=== PATIENT | female | born 1935 | race Caucasian/White ===

== ENCOUNTER 2017-12-21 07:40 | Inpatient (IN) | payer MEDICARE, OTHER, SELFPAY ==
[2017-12-21] VITALS (10 sets, daily range): BP systolic 102–127; BP diastolic 45–94; PULSE 55–84; RESP 12–18; TEMP 36.5–37.2; O2SAT 93–97; BMI 33.7; BMI 33.6; BMI 33.8
--- NOTE | 2017-12-21 08:21 | CT_ITS ---
STUDY: CT RIGHT FEMUR WITHOUT CONTRAST REASON FOR EXAM: Female, 82 years old. Right hip pain and right buttock pain. RADIATION DOSAGE (If Supplied By Facility): CTDIvol = ( 10.30 ) mGy, DLP = ( 546.28 ) mGycm TECHNIQUE: Transaxial CT imaging of the femur was performed. Sagittal and coronal images were reconstructed. Individualized dose optimization techniques were used for this CT. COMPARISON: None. FINDINGS: There is diffuse soft tissue swelling in the subcutaneous tissue and within the right gluteus muscle extending into the lateral aspect of the proximal thigh. This most likely represents hematoma. There is also evidence of a multiple superficial venous varicosities in the anterior and medial aspects of both extremities Small ventral hernia. Sigmoid diverticulosis. Atherosclerotic plaque formation of the abdominal aorta and iliac vessels bilaterally. Normal visualized femur. Degenerative changes of the lumbar spine. CT/Extremity Lower without Contra IMPRESSION: Findings suggestive of a hematoma overlying the right gluteus muscle extending into the lateral aspect of the proximal right thigh. Venous varicosities. Electronically Signed: Emmanuel Bell MD at 9:22 EDT Tel [phone], Service support ,
[2017-12-21 08:39] LABS: Absolute Lymphocyte Count 1.65 X10^3/ul (0.83-4.51); Absolute Neutrophil Count 5.2 X10^3/uL (2.0-7.7); Basophil# 0.02 X10^3/uL; Basophil% 0.3 % (0-1); Hematocrit 37.3 % (37-47); Hemoglobin 11.9 g/dl (12.0-15.0); Lymphocyte # 1.65 X10^3/ul (4.0); Lymphocyte % 21.8 % (19-41); Mean Corp Hgb Conc 31.9 g/gl (32-36); Mean Corpuscular Hgb 29.2 pg (27.0-32.0); Mean Corpuscular Volume 91.6 fL (81-99); Monocyte# 0.36 X10^3/uL; Monocyte% 4.8 % (0-10); Neutrophil # 5.22 X10^3/uL (2.7-7.7); Neutrophil % 68.8 % (47-70); Platelet Count 140 K/mm3 (150-450); RBC Distribution Width CV 14.5 % (11.6-14.6); RBC Distribution Width SD 48.8 fl (35.1-43.9); Red Blood Count 4.07 M/mm3 (4.2-5.4); White Blood Count 7.6 K/mm3 (4.4-11.0)
[2017-12-21] MEDS: Ondansetron 4 MG/2 ML Vial IV (08:41)
[2017-12-21] MEDS: Morphine 4 MG/ML Syringe IV (08:41)
[2017-12-21 08:42] LABS: POSITIVE COUNT NO; POSITIVE DIFFERENTIAL NO; POSITIVE MORPHOLOGY NO
[2017-12-21 08:51] LABS: Prothrombin Time (Protime)PT. 36.8 SECONDS (11.7-14.9)
[2017-12-21 08:52] LABS: Anion Gap 7 (5-15); BUN 17 mg/dL (7-18); BUN/Creat Ratio 16.7 RATIO (10-20); Calcium,Total 8.9 mg/dL (8.5-10.1); Chloride 103 mmol/L (98-107); Creatinine, Serum 1.02 mg/dL (0.55-1.02); EST Glomerular Filtration Rate 55 mL/min (>60); Est Glom Filt Rate - Afr Amer 67 mL/min (>60); Estimated Creatinine Clearance 37.99 ml/min; Glucose 124 mg/dL (74-106); Sodium Level 139 mmol/L (136-145)
[2017-12-21 09:02] LABS: International Normalized Ratio 3.7
--- NOTE | 2017-12-21 10:19 | ED.VISSUMM ---
- ER Visit Summary Date of Service: 12/21/17 Chief Complaint: Right hip pain History of Present Illness: The patient is a 82 F who presents with right hip and buttock pain and swelling. He is on warfarin due to a history of DVT. She also has a history of back pain and sciatica. However last night she began to have pain over her right hip and buttock. She does not recall any fall or injury. This is worse with walking or bearing weight. Her INR was recently supratherapeutic and she has held her warfarin for the past day. She otherwise has no complaints. No fever chest pain shortness of breath nausea vomiting lightheadedness dizziness. Physical Examination: Afebrile vitals unremarkable Patient resting comfortably Heart regular rate and rhythm Lungs are clear Abdomen soft Patient's right hip and buttock are firm and tender do not appreciate overlying ecchymosis or erythema it is not hot to the touch she has good range of motion of the hip without significant pain normal sensation distally Test Results: Laboratory studies notable for hemoglobin 11.9, INR 3.7. Emergency Department Course and Treatment: Based on examination my concern was for spontaneous hematoma. A CT of the lower extremity does show findings consistent with a right gluteus and proximal thigh hematoma. At this time she is hemodynamically stable. Her hemoglobin is unremarkable. However I do feel hospitalization indicated for monitoring for expansion or anemia. She is on warfarin due to a history of recurrent DVTs but this has been remote and she says at least was 5 years ago. She does not have atrial fibrillation her artificial valve. Therefore I do feel reversal appropriate. She was given oral vitamin K. Patient was discussed with the hospitalist and will be admitted. They did request that I speak to surgery in case the patient would need surgical intervention. Plastic surgery is unavailable. I spoke to general surgery who deferred to orthopedics. Dr. Aldridge states that he would operate if needed unless there was any type of major vessel injury or needed vascular repair. Her hematoma is not expanding based on my clinical examination at this time. It does not appear to be under tense pressure. Dr. Aldridge stated he would see the patient as long as it was possible to get an urgent CT angiogram if needed which would be available. Patient admitted to the hospitalist service. Treatment Plan: [] Disposition: Admit Impression: Spontaneous right gluteus hematoma Supratherapeutic INR This note was generated with [employer] dictation software. It may contain incorrect words, spelling, and punctuation that were not noted in review of the chart prior to signing ED Disposition - Plan for ED Patient: Chief Complaint: Lower Extremity Injury Referrals: Angelo Willis III, MD [Primary Care Provider] -
--- NOTE | 2017-12-21 10:43 | CM.ED ---
CM INITIAL ASSESSMENT: Patient is in the ER during assessment. Her son, Antonio, is at bedside. Home: Patient lives in a two-story home with her son, Antonio. The patient has first-floor setup and denies any problems with stairs. HHS/Aides: Denies. When well, patient does drive. DME: Patient states she uses a cane when she's outside of the home. She does not use any assistive devices within the home and denies need. Home Oxygen: Denies. Pharmacy: [facility] in [place] Advance Directives: Has, verified on E-Chart. Son, Antonio, is her medical POA. PCP: Angelo Willis Specialists: Patient states she use to see Dr. Donnelly for back pain management, but after my heart attack they had me stop. She sees Dr. Frank for cardiology. Sven Willis for surgery. DC Plan: TBD. Patient would like to return home, with her son. CM to follow for possible home health needs. CM will continue to follow for safe and effective discharge planning.
[2017-12-21] MEDS: Phytonadione (Vit K) 10 MG/ML Ampul PO (11:16)
--- NOTE | 2017-12-21 12:40 | HP.PCM_ITS ---
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 Her right hip began hurting while [place] She denies fall, impact, or trauma. It started as an ache and progressively worsened all day. She took two tylenol with no relief. She went to bed and woke up this AM about 0130 with severe pain. She noticed swelling and tenderness to the touch. She had her INR checked yesterday and it was elevated at 4.8. She was advised not to take her warfarin last night, which she has not done and did not take any today. In the ER she was found to have a hematoma of the right glute and proximal thigh. INR was 3.[address] Aldridge was consulted. She was given 10 mg vitamin K. She takes warfarin as she has had multiple DVTs of her LE since the 1970s. She denies SOB, dizziness, LH, palpitations, and her Hgb is only mildly dec. at 11.9. [] Past Medical History Past Medical History (Chronic Problems): Chronic Problems Type II diabetes mellitus (Chronic) Coronary artery disease (Chronic) History of recurrent deep vein thrombosis (DVT) (Chronic) CHF (congestive heart failure) (Chronic) HLD (hyperlipidemia) (Chronic) HTN (hypertension) (Chronic) Obesity (Chronic) Pancreatic pseudocyst (Chronic) Allergies Penicillins Allergy (Verified 12/21/17 07:40) Swelling Sulfa (Sulfonamide Antibiotics) Allergy (Verified 12/21/17 07:40) Rash meperidine HCl [From Demerol] Adverse Reaction (Verified 12/21/17 07:40) Other Home Medications: Ambulatory Orders Medication Instructions Recorded Bimatoprost [Lumigan Opthalmic] 1 drop EACH EYE QHS 08/19/13 Clopidogrel Bisulfate [Plavix] 75 mg PO DAILY 08/19/13 Ibuprofen [Motrin] 800 mg PO BID 08/19/13 Insulin Glargine [Lantus SoloStar 46 units SC QHS 08/19/13 Pen] Insulin Lispro [Humalog] 20 unit SQ ACHS 08/19/13 Warfarin [Coumadin] 3 mg PO SUMOWEFRSA 08/19/13 Furosemide [Lasix] 20 mg PO BIDLX 12/21/17 Gabapentin [Neurontin] 100 mg PO TID 12/21/17 Levothyroxine Sodium 75 mcg PO DAILY@0600 12/21/17 Pantoprazole Sodium [Protonix] 40 mg PO DAILY 12/21/17 Rosuvastatin Calcium 20 mg PO DAILY 12/21/17 Sertraline HCl [Zoloft] 25 mg PO DAILY 12/21/17 Spironolactone [Aldactone] 25 mg PO DAILY 12/21/17 Warfarin [Coumadin ([facility])] 3.5 mg PO TUTH 12/21/17 Surgical History: cholecystectomy, - - pancreatic pseudocyst, ectopic , vein stripping Psychiatric History: No pertinent psych hx 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 Lives: With Family Smoking Status: Former smoker Tobacco Use: Secondhand Alcohol: None Drugs: None - *Family History Maternal History Items: Diabetes, Heart Disease Paternal History Items: Unknown Review of Systems Constitutional: Denies: Chills, Fever, Weight Change HEENT: Denies: Head Aches, Sinus Congestion, Sinus Drainage Cardiovascular: Denies: Chest Pain, Palpitations Respiratory: Denies: Cough, Shortness of breath at rest, Sputum production Gastrointestinal: Denies: Abdominal Pain, Nausea, Vomiting Genitourinary: Denies: Dysuria Musculoskeletal: Reports: Joint Pain, Joint stiffness, Joint swelling, Joint Tenderness, Leg Pain Skin: Denies: Rash, Wounds Neurological: Denies: Numbness, Tingling, Focal weakness Psychiatric: Denies: Anxiety, Depression, Homicidal Ideations, Suicidal Ideations Hematologic/ Lymphatic: Denies: Easy Bruising, Easy Bleeding VTE Information - Inpt Only VTE Present on Admission: No VTE Mechan Device Prophylaxis: SCD's VTE Pharm Prophylaxis ordered?: No Reason prophylaxis not ordered:: Medical Contraindication Patient Problems: Active and Suspected Problems Hematoma (Acute) - Physical Exam General: Alert, Oriented x3, Cooperative HEENT: Atraumatic, PERRLA, EOMI, Normocephalic Neck: Supple, No JVD, Negative Carotid Bruits Lungs: Clear to auscultation, Normal air movement Cardiovascular: Regular rate, No murmurs Abdomen: Bowel Sounds Present, Soft, Non Tender Extremities: No edema, Capillary Refill Less than 3 Seconds, - - severe varicosities of BL LE Skin: No rashes, No breakdown Musculoskeletal: No Tenderness to Palpation of Joints or Extremities, - - right glute/hip with some bruising, mild warmth, induration Neurological: Cranial nerves II-XII grossly intact Psych/Mental Status: Normal Affect, Appropriate Vital Signs Temp Pulse Resp BP Pulse Ox 98.4 F 65 16 104/81 H 97 12/21/17 07:41 12/21/17 10:45 12/21/17 10:45 12/21/17 10:45 12/21/17 10:45 Laboratory Tests Past 24 Hrs 12/21/17 12:15 Blood Type Pending Assessment/Plan Active and Suspected Problems Hematoma (Acute) 1. Acute large right gluteal atraumatic hematoma 2/2 supratherapeutic INR/ warfarin coagulopathy - s/p 10 mg Vit K and 1 unit FFP. Trend. Consult to Dr. Aldridge. No plans for surgical intervention at this time. Hgb mildly decreased. No fall/trauma. CT: Right LE :Findings suggestive of a hematoma overlying the right gluteus muscle extending into the lateral aspect of the proximal right thigh. 2. Hx DVTs - multiple since 1970s. Long time coumadin user. 3. Venous insufficiency - s/p vein stripping with severe varicosities. 4. CAD s/p stents and CABG - continue home meds. prior [place]. Continue statin/ plavix/diuretics. 5. COPD - former smoker and current secondhand smoke exposure. No SOB, lungs clear. 6. DMt2 with obesity - titrate insulin therapy 7. Hypothyroidism - continue synthroid 8. HTN - stable 9. Chronic diastolic CHF - continue lasix/aldactone. 10. Sciatica - continue neurontin. DVT ppx : SCDs, trend supratherapeutic INR DC planning: PTOT This patient was seen by Gaston Mortensen PA-C under the supervision of Dr. Chen.
[2017-12-21 13:10] LABS: Bedside Glucose 87 mg/dL (70-110)
[2017-12-21] MEDS: oxyCODONE 5 MG Tablet PO ×2 (13:14→20:02)
[2017-12-21] MEDS: 0.9% Normal Saline 1,000 ML 75 ML IV (13:15)
[2017-12-21] MEDS: 0.9% NaCl Peripheral Flush Adult/Peds IV (13:17)
[2017-12-21] MEDS: Gabapentin 100 MG Capsule PO ×2 (13:22→21:38)
[2017-12-21] MEDS: Insulin Lispro 100 UNIT/ML INSULN.PEN 20 UNIT SC (13:25)
[2017-12-21] MEDS: Acetaminophen 325 MG Tablet 650 MG PO (16:17)
--- NOTE | 2017-12-21 16:49 | NURSING ---
Pt has had one 4 oz of orange juice, 4 oz of cranberry juice, 1 pkg of mariah doones with peanut butter on each cracker, and finished a can of 222 ml reg coke.
--- NOTE | 2017-12-21 16:55 | NURSING ---
Blood glucose is 64, pt's tray arrived and she is not eating supper.
--- NOTE | 2017-12-21 16:59 | NURSING ---
Pt is alert and oriented x3, eating supper now.
--- NOTE | 2017-12-21 18:42 | PCM.CONS.GEN ---
Reason for Consult Date of Consultation: 12/21/17 Reason for Consultation: Right thigh hematoma. requested by dr jones History of Present Illness: The patient is a 82 year old F who is on Coumadin for DVTs presented to the emergency department this morning. Patient noted swelling after walking in the cemetery last afternoon which progressed throughout the evening. She states this morning it remained stable but began to hurt more. She has no redness. She noted ecchymosis. She had difficulty with walking due to the pain. She had an INR of 4.8 in the emergency department. Medicine is admitted her and started reversing her INR. She reports some relief of her pain at this time. She states it is not grown significantly today at all. She denies any numbness and tingling distally. No other associated pain. No fevers chills or night sweats. Past Medical History Past Medical History (Chronic Problems): Chronic Problems Type II diabetes mellitus (Chronic) Coronary artery disease (Chronic) History of recurrent deep vein thrombosis (DVT) (Chronic) CHF (congestive heart failure) (Chronic) HLD (hyperlipidemia) (Chronic) HTN (hypertension) (Chronic) Obesity (Chronic) Pancreatic pseudocyst (Chronic) Allergies Penicillins Allergy (Verified 12/21/17 07:40) Swelling Sulfa (Sulfonamide Antibiotics) Allergy (Verified 12/21/17 07:40) Rash meperidine HCl [From Demerol] Adverse Reaction (Verified 12/21/17 07:40) Other Home Medications: Ambulatory Orders Medication Instructions Recorded Bimatoprost [Lumigan Opthalmic] 1 drop EACH EYE QHS 08/19/13 Clopidogrel Bisulfate [Plavix] 75 mg PO DAILY 08/19/13 Ibuprofen [Motrin] 800 mg PO BID 08/19/13 Insulin Glargine [Lantus SoloStar 46 units SC QHS 08/19/13 Pen] Insulin Lispro [Humalog] 20 unit SQ ACHS 08/19/13 Warfarin [Coumadin] 3 mg PO SUMOWEFRSA 08/19/13 Furosemide [Lasix] 20 mg PO BIDLX 12/21/17 Gabapentin [Neurontin] 100 mg PO TID 12/21/17 Levothyroxine Sodium 75 mcg PO DAILY@0600 12/21/17 Pantoprazole Sodium [Protonix] 40 mg PO DAILY 12/21/17 Rosuvastatin Calcium 20 mg PO DAILY 12/21/17 Sertraline HCl [Zoloft] 25 mg PO DAILY 12/21/17 Spironolactone [Aldactone] 25 mg PO DAILY 12/21/17 Warfarin [Coumadin ([facility])] 3.5 mg PO TUTH 12/21/17 Surgical History: cholecystectomy, - - pancreatic pseudocyst, ectopic , vein stripping Psychiatric History: No pertinent psych hx 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 Lives: With Family Smoking Status: Former smoker Tobacco Use: Secondhand Alcohol: None Drugs: None - *Family History Maternal History Items: Diabetes, Heart Disease Paternal History Items: Unknown Review of Systems Constitutional: Denies: Chills, Fever, Weight Change HEENT: Denies: Head Aches, Sinus Congestion, Sinus Drainage Cardiovascular: Denies: Chest Pain, Palpitations Respiratory: Denies: Cough, Shortness of breath at rest, Sputum production Gastrointestinal: Denies: Abdominal Pain, Nausea, Vomiting Genitourinary: Denies: Dysuria Musculoskeletal: Reports: - - HPI Skin: Reports: - - Right thigh ecchymosis. Denies: Rash, Wounds Neurological: Denies: Numbness, Tingling, Focal weakness Psychiatric: Denies: Anxiety, Depression, Homicidal Ideations, Suicidal Ideations Hematologic/ Lymphatic: Denies: Easy Bruising, Easy Bleeding Patient Problems: Active and Suspected Problems Hematoma (Acute) Objective: CT scan of the right thigh was reviewed showing large superficial hematoma - Physical Exam General: Alert, Oriented x3, Cooperative Extremities: - - Lower extremity: There is a large area of firmness over the lateral thigh and buttocks. There is associated ecchymosis. No erythema. Sensations intact light touch SP/DP/tibial/sural/saphenous nerve distribution on the right. Motor is intact dorsiflexion EHL and plantar flexion on the right. Vital Signs Temp Pulse Resp BP Pulse Ox 98.8 F 66 16 105/63 95 12/21/17 16:00 12/21/17 16:00 12/21/17 16:00 12/21/17 16:00 12/21/17 16:00 Oxygen Delivery Method Room Air Weight: 197 lb 0.011 oz Body Mass Index (BMI) 33.6 Intake and Output for Last 24 Hours 05/21/18 05/22/18 05/23/18 23:59 23:59 23:59 Intake Total 0 / 0 Balance 0 / 0 Laboratory Tests Past 24 Hrs 12/21/17 12:15 Blood Type O POSITIVE POC Glucose 12/21/17 13:05 POC Glucose 87 Assessment/Plan Active and Suspected Problems Hematoma (Acute) Spontaneous right thigh hematoma. At this time patient does not show signs of infectious etiology. I recommend reversing the INR watching clinical examination. Patient does have progressive increase in size of the hematoma causing tension on the skin or signs of infected hematoma is contact orthopedics again. At this time I would recommend patient follow-up with her primary care doctor for management of her Coumadin so these do not recur in the future. No surgical intervention is needed at this time. [facility] Office:
[2017-12-21] MEDS: Furosemide 20 MG Tablet PO (18:50)
[2017-12-21 18:51] LABS: Bedside Glucose 199 mg/dL (70-110)
[2017-12-21] MEDS: Atorvastatin Calcium 40 MG Tablet PO (21:38)
[2017-12-21] MEDS: Insulin Lispro 100 UNIT/ML INSULN.PEN 10 UNIT SC (21:38)
[2017-12-21] MEDS: Insulin Lispro 100 UNIT/ML INSULN.PEN SC (21:39)
[2017-12-21] MEDS: Latanoprost 0.005% 1 Bottle 1 DRP EACH EYE (21:40)
[2017-12-21 21:41] LABS: Bedside Glucose 272 mg/dL (70-110)
[2017-12-22 04:38] VITALS: BP 101/50; PULSE 66; RESP 18; TEMP 37.4; O2SAT 95
[2017-12-22 04:41] LABS: Bedside Glucose 146 mg/dL (70-110)
[2017-12-22] MEDS: Gabapentin 100 MG Capsule PO (05:58)
[2017-12-22] MEDS: 0.9% Normal Saline 1,000 ML 75 ML IV (05:58)
[2017-12-22] MEDS: Levothyroxine 75 MCG Tablet PO (05:58)
[2017-12-22 06:09] LABS: Absolute Lymphocyte Count 1.75 X10^3/ul (0.83-4.51); Absolute Neutrophil Count 5.3 X10^3/uL (2.0-7.7); Basophil# 0.02 X10^3/uL; Basophil% 0.3 % (0-1); Eosinophil# 0.26 X10^3/uL; Eosinophils% 3.4 % (0-5); Hematocrit 34.1 % (37-47); Hemoglobin 10.8 g/dl (12.0-15.0); Lymphocyte # 1.75 X10^3/ul (4.0); Lymphocyte % 22.6 % (19-41); Mean Corp Hgb Conc 31.7 g/gl (32-36); Mean Corpuscular Hgb 29.8 pg (27.0-32.0); Mean Corpuscular Volume 93.9 fL (81-99); Mean Platelet Vol. 11.3 fl (6.2-12.0); Monocyte# 0.44 X10^3/uL; Monocyte% 5.7 % (0-10); Neutrophil # 5.27 X10^3/uL (2.7-7.7); Neutrophil % 67.7 % (47-70); Platelet Count 132 K/mm3 (150-450); RBC Distribution Width CV 14.7 % (11.6-14.6); Red Blood Count 3.63 M/mm3 (4.2-5.4); White Blood Count 7.8 K/mm3 (4.4-11.0)
[2017-12-22 06:13] LABS: POSITIVE COUNT NO; POSITIVE DIFFERENTIAL NO; POSITIVE MORPHOLOGY NO
[2017-12-22 06:17] LABS: International Normalized Ratio 1.5; Prothrombin Time (Protime)PT. 17.9 SECONDS (11.7-14.9)
[2017-12-22 07:41] LABS: Bedside Glucose 225 mg/dL (70-110)
[2017-12-22 07:43] VITALS: BP 104/57; PULSE 60; RESP 16; TEMP 37.3; O2SAT 92
[2017-12-22] MEDS: Insulin Lispro 100 UNIT/ML INSULN.PEN SC (08:12)
[2017-12-22] MEDS: Insulin Lispro 100 UNIT/ML INSULN.PEN 10 UNIT SC (08:13)
[2017-12-22 08:28] VITALS: RESP 18
[2017-12-22] MEDS: Furosemide 20 MG Tablet PO (09:11)
[2017-12-22] MEDS: Spironolactone 25 MG Tablet PO (09:11)
[2017-12-22] MEDS: Pantoprazole Sodium 40 MG Tablet PO (09:11)
[2017-12-22] MEDS: Sertraline 50 MG Tablet 25 MG PO (09:11)
[2017-12-22] MEDS: Clopidogrel Bisulfate 75 MG Tablet PO (09:13)
--- NOTE | 2017-12-22 09:41 | DCINST_ITS ---
- Discharge Diagnoses Current Active Problems: Current Active and Chronic Problems Hematoma (Acute) You will use the following diet at home:: Calorie/Carbohydrate Controlled ( specify 1200, 1400, etc), Cardiac Discharge Activity: No Restrictions Call your doctor if you observe: Numbness or Tingling, Uncontrolled pain, - - Increased swelling, pain, redness right thigh. Additional Instructions: You will hold your coumadin regimen until further evaluated by primary care physician in one week. Allergies/Adverse Reactions: Allergies Penicillins Allergy (Verified 12/21/17 07:40) Swelling Sulfa (Sulfonamide Antibiotics) Allergy (Verified 12/21/17 07:40) Rash meperidine HCl [From Demerol] Adverse Reaction (Verified 12/21/17 07:40) Other Medications to take at Discharge Bimatoprost [Lumigan Opthalmic] 1 drop EACH EYE QHS 08/19/13 Clopidogrel Bisulfate [Plavix] 75 mg PO DAILY 08/19/13 Ibuprofen [Motrin] 800 mg PO BID 08/19/13 Insulin Glargine [Lantus SoloStar Pen] 46 units SC QHS 08/19/13 Insulin Lispro [Humalog] 20 unit SQ ACHS 08/19/13 Furosemide [Lasix] 20 mg PO BIDLX 12/21/17 Gabapentin [Neurontin] 100 mg PO TID 12/21/17 Levothyroxine Sodium 75 mcg PO DAILY@0600 12/21/17 Pantoprazole Sodium [Protonix] 40 mg PO DAILY 12/21/17 Rosuvastatin Calcium 20 mg PO DAILY 12/21/17 Sertraline HCl [Zoloft] 25 mg PO DAILY 12/21/17 Spironolactone [Aldactone] 25 mg PO DAILY 12/21/17 Primary Care Physician: Angelo Willis III, MD [Primary Care Provider] - Please follow up with your Primary Care Physician in: 1 Week Proposed Discharge Date: 12/22/17
--- NOTE | 2017-12-22 09:42 | PCM.DC.SUM ---
Discharge Date and Diagnosis Date of Admission: 12/21/17 Date of Discharge: 12/22/17 - Primary Discharge Diagnosis Active and Suspected Problems 1. Acute large right gluteal/right thigh atraumatic hematoma secondary to supratherapeutic INR 2. History of DVTs 3. Hypertension 4. Hyperlipidemia 5. Type 2 diabetes mellitus 6. Chronic diastolic CHF 7. Hypothyroidism 8. CAD status post stents and CABG 9. Venous insufficiency status post vein stripping with severe varicosities 10. Sciatica - Secondary Discharge Diagnosis Chronic Problems Type II diabetes mellitus (Chronic) Coronary artery disease (Chronic) History of recurrent deep vein thrombosis (DVT) (Chronic) CHF (congestive heart failure) (Chronic) HLD (hyperlipidemia) (Chronic) HTN (hypertension) (Chronic) Obesity (Chronic) Pancreatic pseudocyst (Chronic) Hospital Course and Treatment Imaging Results: Diagnostic Data Lower Extremity CT 12/21/17 08:21 IMPRESSION: Findings suggestive of a hematoma overlying the right gluteus muscle extending into the lateral aspect of the proximal right thigh. Venous varicosities. Electronically Signed: Emmanuel Bell MD at 9:22 EDT Tel [phone], Service support , Dr. Aldridge- Orthopedic surgery Operations: None Procedures: None Summary of Care Provided: The patient is a 82 year old F admitted 12/21/2017 due to right hip pain. She has a past medical history of recurrent DVTs on chronic Coumadin, type 2 diabetes mellitus, chronic diastolic CHF, CAD status post CABG and stents, hypertension, hyperlipidemia, sciatica, hypothyroidism, COPD, venous insufficiency status post vein stripping with severe varicosities. Patient denies trauma or fall. CT of right lower extremity showed hematoma of the right gluteus muscle extending into the lateral aspect of the proximal right thigh. Dr. Aldridge, orthopedic surgery consulted during admission. Hematoma remained stable and did not require any surgical intervention. Patient received 10 mg of vitamin K and 1 unit FFP due to INR 3.7 on admission. Hemoglobin remained stable. Patient denies further pain. INR 1.5 at discharge. She will remain off of Coumadin until further assessment by primary care physician in 1 week. Other chronic medical conditions as noted above are stable at this time. General: Alert, Oriented x3, Cooperative HEENT: Atraumatic, PERRLA, EOMI, Normocephalic Neck: Supple, No JVD, Negative Carotid Bruits Lungs: Clear to auscultation, Normal air movement Cardiovascular: Regular rate, No murmurs Abdomen: Bowel Sounds Present, Soft, Non Tender Extremities: No edema, Capillary Refill Less than 3 Seconds, severe varicosities bilateral lower extremities. Skin: No rashes, No breakdown Musculoskeletal: No Tenderness to Palpation of Joints or Extremities, right gluteal/right hip with mild ecchymosis and tenderness. Neurological: Cranial nerves II-XII grossly intact Psych/Mental Status: Normal Affect, Appropriate Patient seen and examined prior to discharge. Physical assessment as noted above. Patient stable for discharge home with further follow-up with primary care physician in 1 week. This patient was seen by SKIP Rm under the supervision of Dr. Chen. Discharge Diet: Low fat/ Low Cholesterol, Carb Control Diet Discharge Activity: No Restrictions Call your doctor if you observe: Numbness or Tingling, Uncontrolled pain, - - Increased swelling, pain, redness right thigh. Home Medications: Medications to take at Discharge Bimatoprost [Lumigan Opthalmic] 1 drop EACH EYE QHS 08/19/13 Clopidogrel Bisulfate [Plavix] 75 mg PO DAILY 08/19/13 Ibuprofen [Motrin] 800 mg PO BID 08/19/13 Insulin Glargine [Lantus SoloStar Pen] 46 units SC QHS 08/19/13 Insulin Lispro [Humalog] 20 unit SQ ACHS 08/19/13 Furosemide [Lasix] 20 mg PO BIDLX 12/21/17 Gabapentin [Neurontin] 100 mg PO TID 12/21/17 Levothyroxine Sodium 75 mcg PO DAILY@0600 12/21/17 Pantoprazole Sodium [Protonix] 40 mg PO DAILY 12/21/17 Rosuvastatin Calcium 20 mg PO DAILY 12/21/17 Sertraline HCl [Zoloft] 25 mg PO DAILY 12/21/17 Spironolactone [Aldactone] 25 mg PO DAILY 12/21/17 Primary Care Physician: Angelo Willis III, MD [Primary Care Provider] - Please follow up with your Primary Care Physician in: 1 Week Disposition: Home Minutes spent on discharge:: 35 Patient Condition:: Stable Medical Necessity - Tobacco Use Smoking Status: Former smoker Tobacco Use: Secondhand Meaningful Use Info Meaningful Use Diagnoses (Choose all that apply): None applicable
--- NOTE | 2017-12-22 10:35 | CASEMGMT ---
Pt to be dc'd today. Lives with her son. Per nursing, she is ambulatory with minimal assistance and cane from home. No new needs identified. Virgie BALDWINN RN ACM
[2017-12-22 10:38] VITALS: BP 122/63; PULSE 60; RESP 18; TEMP 37.2; O2SAT 98
[2017-12-22 15:21] LABS: Bedside Glucose 58 mg/dL (70-110)
[2017-12-22 15:21] LABS: Bedside Glucose 61 mg/dL (70-110)
[2017-12-22 15:21] LABS: Bedside Glucose 64 mg/dL (70-110)
[2017-12-22 15:21] LABS: Bedside Glucose 60 mg/dL (70-110)
--- NOTE | 2017-12-30 13:59 | CASEMGMT ---
RN REBEL DC Phone Call. Intro role of CM to patient via phone. discussed progress at home, questions re: instructions, prescriptions, f/u. Pt states she has followed up with her physician and is doing well. No questions. Stated her care was excellent and no suggestions. Virgie BALDWINN RN ACM
== END 2017-12-22 11:00 | disposition home or self-care (01) | DRG 813 ==
LOC: ED 08:31 → MS2 10:57
PROVIDERS: Admitting Provider Internal Medicine; Emergency Provider Emergency Medicine; Family Provider Family Medicine; PCP Family Medicine; Visit Provider Internal Medicine
DX: R23.3 Spontaneous ecchymoses (principal); K86.3 Pseudocyst of pancreas; I50.32 Chronic diastolic (congestive) heart failure; T45.515A Adverse effect of anticoagulants, initial encounter; I11.0 Hypertensive heart disease with heart failure; E78.5 Hyperlipidemia, unspecified; E11.9 Type 2 diabetes mellitus without complications; I25.10 Atherosclerotic heart disease of native coronary artery without angina pectoris; E66.9 Obesity, unspecified; Z79.01 Long term (current) use of anticoagulants; Z86.718 Personal history of other venous thrombosis and embolism; Z68.33 Body mass index [BMI] 33.0-33.9, adult; Z71.3 Dietary counseling and surveillance; Z87.891 Personal history of nicotine dependence; E03.9 Hypothyroidism, unspecified; Z95.1 Presence of aortocoronary bypass graft
CPT/HCPCS: 36415; 73700; 80048; 82962; 85025; 85610; 86900; 99284; J7030; J7040; P9017; A4216; J2405

== ENCOUNTER → 2019-01-23 | Outpatient (CLI) | payer MEDICARE, OTHER, SELFPAY ==
[2019-01-23 13:33] LABS: International Normalized Ratio 3.3; Prothrombin Time (Protime)PT. 33.9 SECONDS (11.7-14.9)
== END | disposition home or self-care (01) ==
PROVIDERS: Family Provider Family Medicine; PCP Family Medicine; Referring Provider Family Medicine; Visit Provider Family Medicine
DX: I25.10 Atherosclerotic heart disease of native coronary artery without angina pectoris (principal); D69.6 Thrombocytopenia, unspecified
CPT/HCPCS: 85610

== ENCOUNTER → 2019-10-22 12:30 | Outpatient (CLI) | payer MEDICARE, OTHER, SELFPAY ==
[2019-09-06 14:44] VITALS: BMI 34.0
--- NOTE | 2019-10-22 12:32 | ECHOD_ITS ---
Reason For Study: MURMUR Procedure This was a 2D Doppler, Color Flow transthoracic echocardiogram. The study was technically difficult. Exam performed in department. Left Ventricle Normal LV size. Sigmoid septum. Segmental dysfunction with preserved ejection fraction (see wall motion). The estimated ejection fraction is 60 %. Mid-inferoseptal : Hypokinetic. Mid-anteroseptal : Hypokinetic. Septal [place] : Hypokinetic. Right Ventricle Normal RV size. Normal systolic function. Atria The left atrium is mildly enlarged. Normal right atrium. No doppler evidence for ASD. Mitral Valve There is mild mitral annular calcification. Extension of the mitral annular calcification onto the base of the posterior mitral valve leaflet. Trivial mitral valve insufficiency. Tricuspid Valve Normal tricuspid valve. Trivial tricuspid valve insufficiency. Right ventricular systolic pressure estimated to be 23 mmHg. Aortic Valve Trisinus/trileaflet aortic valve. Mild focal aortic valve thickening. Mild focal aortic valve calcification. Mild aortic stenosis. Pulmonic Valve The pulmonic valve is not well visualized. Great Vessels Normal sized aortic root. Calcified aortic root. Pericardium/Pleural No pericardial effusion. MMode/2D Measurements & Calculations LVIDd: 4.3 cm IVSd: 0.94 cm LVOT diam: 2.1 cm LVIDs: 3.0 cm LVPWd: 0.98 cm LVOT area: 3.3 cm2 RVDd: 2.9 cm FS: 30.4 % Ao root diam: 2.9 cm LAV(MOD-bp): 67.5 ml LA A4 area: 21.1 cm2 LAV(MOD-bp) Indexed: 34.1 ml/m2 LAV(MOD-sp2): 76.6 ml LAV(MOD-sp4): 59.3 ml LA dimension(2D): 4.8 cm RA A4 area: 15.0 cm2 Time Measurements MV dec time: 0.16 sec Doppler Measurements & Calculations MV E max craig: 80.5 cm/sec Lat Peak E' Craig: 5.9 cm/sec Med Peak E' Craig: 5.3 cm/sec MV A max craig: 58.5 cm/sec E/E' lat: 13.8 E/E' med: 15.1 MV E/A: 1.4 Ao V2 max: 182.6 cm/sec LV V1 max: 79.8 cm/sec SV(LVOT): 67.5 ml Ao max P.3 mmHg LV V1 max P.5 mmHg Ao V2 mean: 139.0 cm/sec LV V1 mean P.5 mmHg Ao mean P.1 mmHg LV V1 mean: 59.6 cm/sec Ao V2 VTI: 45.7 cm LV V1 VTI: 20.3 cm TANIA(I,D): 1.5 cm2 TANIA(V,D): 1.5 cm2 PA V2 max: 84.9 cm/sec TR max craig: 222.9 cm/sec TR max P.9 mmHg Interpretation Summary The study was technically difficult. Segmental dysfunction with preserved ejection fraction (see wall motion). The estimated ejection fraction is 60 %. Sigmoid septum. The left atrium is mildly enlarged. There is mild mitral annular calcification. Extension of the mitral annular calcification onto the base of the posterior mitral valve leaflet. Trivial mitral valve insufficiency. Trivial tricuspid valve insufficiency. Mild aortic stenosis. Calcified aortic root. Right ventricular systolic pressure estimated to be 23 mmHg. Transmitral diastolic flow velocities suggest diastolic dysfunction (pseudonormal pattern). Ordering Physician: Sim Benson Referring Physician: Angelo Willis Performed By: Yanci Richardson, VAMSHI, RVT
== END ==
PROVIDERS: PCP Family Medicine; Referring Provider Internal Medicine Cardiovascular Disease; Visit Provider Internal Medicine Cardiovascular Disease
DX: I25.10 Atherosclerotic heart disease of native coronary artery without angina pectoris (principal)
CPT/HCPCS: 93306

== ENCOUNTER 2021-04-29 13:40 | Emergency (ER) | payer MEDICARE, OTHER, SELFPAY ==
[2021-04-29 13:41] VITALS: BP 137/69; PULSE 70; RESP 17; TEMP 36.5; O2SAT 95; BMI 35.2
[2021-04-29 14:40] VITALS: BP 137/69; PULSE 70; RESP 17; TEMP 36.5; O2SAT 95
--- NOTE | 2021-04-29 15:07 | CT_ITS ---
We are attempting to reach an attending provider to discuss findings. An addendum with communication details will be sent when the communication is complete. HISTORY: headache, vertigo TECHNIQUE: Multiple axial images were obtained of the brain without intravenous contrast. A radiation dose optimization technique was used for this scan. IV Contrast dosage and agent: None. COMPARISON: None FINDINGS: # of images incl. paperwork: [phone] PARANASAL SINUSES AND MASTOID AIR CELLS: Clear. INTRACRANIAL HEMORRHAGE: Mixed attenuation but predominantly acute subdural hematoma over the left frontal lobe, maximal thickness 13 mm with mass effect on the underlying parenchyma. Small right frontal subdural hematoma, 4 mm maximal thickness. Small left-sided layering tentorial subdural hematoma, maximal thickness 4 mm. Anterior interhemispheric acute subdural hematoma, 2 mm thickness.. No midline shift. BRAIN PARENCHYMA: No CT evidence of stroke. No intracranial masses. There is preservation of the manuel/white matter interface. Posterior fossa structures are unremarkable. CSF SPACES: Appropriate for age. There is no hydrocephalus. CALVARIUM: Intact. CT/Brain/Head without Contrast IMPRESSION: Bilateral acute subdural hematomas, largest on the left up to 13 mm, no midline shift. Small left-sided layering tentorial and interhemispheric subdural hematoma. Individualized dose optimization techniques were used for this CT. at 1559 Reported and signed by: Jomar Potter MD Electronically Signed: Jomar Potter MD at 15:57 EDT Tel , Service support ,
[2021-04-29] MEDS: Metoclopramide 10 MG/2 ML Vial 5 MG IV (15:21)
[2021-04-29 15:33] LABS: Absolute Lymphocyte Count 1.54 X10^3/uL (0.83-4.51); Absolute Neutrophil Count 5.4 X10^3/uL (2.0-7.7); Basophil# 0.05 X10^3/uL; Basophil% 0.7 % (0-1); Eosinophil# 0.15 X10^3/uL; Hematocrit 39.2 % (37-47); Hemoglobin 12.6 g/dL (12.0-15.0); Lymphocyte # 1.54 X10^3/ul (0.83-4.51); Lymphocyte % 20.1 % (19-41); Mean Corp Hgb Conc 32.1 g/dL (32-36); Mean Corpuscular Volume 96.3 fL (81-99); Mean Platelet Vol. 10.8 fl (6.2-12.0); Monocyte# 0.48 X10^3/uL; Monocyte% 6.3 % (0-10); NRBC Flagged by Analyzer 0 % (0-5); Neutrophil % 70.4 % (47-70); Platelet Count 160 K/mm3 (150-450); RBC Distribution Width CV 14.7 % (11.6-14.6); RBC Distribution Width SD 52.5 fl (35.1-43.9); Red Blood Count 4.07 M/mm3 (4.2-5.4); White Blood Count 7.7 K/mm3 (4.4-11.0)
[2021-04-29 15:44] LABS: Prothrombin Time (Protime)PT. 30.3 SECONDS (11.7-14.9)
[2021-04-29 15:47] VITALS: BP 143/65; PULSE 85; RESP 20; TEMP 36.8
[2021-04-29 15:56] LABS: Anion Gap 8 (5-15); BUN 21 mg/dL (7-18); BUN/Creat Ratio 18.9 RATIO (10-20); Calcium,Total 9.5 mg/dL (8.5-10.1); Chloride 101 mmol/L (98-107); Creatinine, Serum 1.11 mg/dL (0.55-1.02); EST Glomerular Filtration Rate 50 mL/min (>60); Est Glom Filt Rate - Afr Amer 60 mL/min (>60); Estimated Creatinine Clearance 31.21 ml/min; Glucose 107 mg/dL (74-106); Potassium 4.5 mmol/L (3.5-5.1); Sodium Level 138 mmol/L (136-145)
--- NOTE | 2021-04-29 16:07 | EX.ED.GENINJ ---
HPI History of Present Illness Chief Complaint: Nausea/Vomiting Informant: patient Narrative Narrative: Patient presents private vehicle for evaluation of nontraumatic headache with dizzy sensation since yesterday. Symptoms worse with head turning. States nausea and vomiting with the dizzy sensations. Reports she had left ear symptoms since the beginning of this month, she saw an urgent care she was treated for shingles of the ear on Valtrex. She was referred to ophthalmology who evaluate her eyes and there was no shingles there. She follow-up with PCP office states it was not shingles and had concerning ear infection was changed over to Ceftinir. She finished this antibiotic. She did follow-up with ENT referred by PCP, reports something removed from her left inner ear by suction which improved her symptoms. However yesterday symptoms are new. She is on warfarin for history of DVTs. Last dose was yesterday in the evening. She ambulates with a cane at home. She does have history of bypass surgery, she is on Plavix also. Prior similar symptoms: No PFSH PFSH Medical History Atherosclerotic heart disease of [place] coronary artery without angina pectoris CHF (congestive heart failure) Chronic diastolic heart failure CKD (chronic kidney disease) stage 3, GFR 30-59 ml/min Community acquired pneumonia COPD (chronic obstructive pulmonary disease) Coronary artery disease Diffuse cystic mastopathy Essential hypertension First degree AV block Glaucoma Hematoma History of non-ST elevation myocardial infarction (NSTEMI) History of recurrent deep vein thrombosis (DVT) HLD (hyperlipidemia) SALAMATOF (hard of hearing) HTN (hypertension) Hypothyroidism Left ventricular hypertrophy Obesity Old myocardial infarction Pancreatic pseudocyst Pes planus [place] Statin intolerance Thrombocytopenia Type II diabetes mellitus Venous insufficiency Home Medications bimatoprost 1 drp EACH EYE QHS 08/19/13 [History Last Taken 03/29/16] clopidogrel 75 mg PO DAILY 08/19/13 [History Last Taken 03/29/16] insulin lispro 20 unit SQ ACHS 08/19/13 [History Last Taken 03/29/16] furosemide 20 mg PO BIDLX 12/21/17 [History Last Taken Unknown] levothyroxine 75 mcg PO DAILY@0600 12/21/17 [History Last Taken Unknown] spironolactone 25 mg PO DAILY 12/21/17 [History Last Taken Unknown] warfarin 1 mg tablet 1 mg PO DAILY 06/25/19 [History Last Taken Unknown] warfarin 3 mg tablet 3 mg PO DAILY 06/25/19 [History Last Taken Unknown] insulin glargine 100 unit/mL (3 mL) subcutaneous pen 44 unit SUBCUT QHS ml 09/06/19 [History Last Taken Unknown] mometasone 0.1 % topical cream 1 applic TOPICAL DAILY PRN 09/06/19 [History Last Taken Unknown] rosuvastatin 10 mg tablet See Rx Instructions .ROUTE .COMPLEX #90 tablet 10/23/20 [Rx Last Taken Unknown] gabapentin 100 mg capsule 100 mg PO TID 12/17/20 [History Last Taken Unknown] Allergy/AdvReac Type Severity Reaction Status Date / Time celecoxib [From Celebrex] Allergy Severe Itching Verified 04/29/21 13:46 Penicillins Allergy Swelling Verified 04/29/21 13:46 Sulfa (Sulfonamide Allergy Rash Verified 04/29/21 13:46 Antibiotics) atorvastatin AdvReac Severe myalgias Verified 04/29/21 13:46 meperidine HCl [From Demerol] AdvReac Other Verified 04/29/21 13:46 Family History Mother Diabetes Surgical History History of coronary artery bypass surgery (~04/06/16) Social History Smoking Status: Former smoker alcohol intake: never substance use type: does not use caffeine: No ROS ROS ED Constitutional Constitutional ED: Denies chills, fever(s) or sweats Eyes Eyes: Denies change in vision ENT ENT ED: Denies dysphagia or sore throat Cardiovascular Cardiovascular: Denies chest pain, leg edema, palpitations or racing heartbeat Respiratory/Chest Respiratory/Chest: Denies cough, dyspnea or dyspnea on exertion Gastrointestinal Gastrointestinal: Reports nausea and vomiting; Denies abdominal pain or diarrhea Genitourinary Genitourinary ED: Denies dysuria, hematuria or urinary frequency Musculoskeletal Musculoskeletal: Denies back pain, extremity pain or neck pain Integumentary Denies rash or wounds Neurologic Neurologic: Reports headache(s); Denies paresthesias or weakness EXAM Physical Exam Const Vital Signs: 04/29/21 13:41 04/29/21 14:40 04/29/21 15:47 Temperature 97.7 F L 97.7 F L 98.2 F Temperature Source Temporal Temporal Oral Pulse Rate 70 70 85 Respiratory Rate 17 17 20 H Blood Pressure 137/69 H 137/69 H 143/65 H Blood Pressure Mean 91 91 91 Pulse Ox 95 95 Oxygen Delivery Method Room Air Room Air Room Air Oxygen Flow Rate (L/min) 04/29/21 16:02 04/29/21 16:16 04/29/21 16:20 Temperature 98.2 F Temperature Source Pulse Rate 82 86 Respiratory Rate 17 18 Blood Pressure 150/75 H 150/75 H Blood Pressure Mean 100 100 Pulse Ox 100 100 Oxygen Delivery Method Nasal Cannula Nasal Cannula Oxygen Flow Rate (L/min) 2 2 Positive well nourished and well developed General Appearance ED: well developed and NAD HEENT Reports moist mucous membranes HEENT Narrative: Bilateral hearing aids. normocephalic and atraumatic Eyes PERRL, EOMs intact bilaterally and conjunctivae normal General Eye ED: Yes normal appearance of both eyes and other Other Details: No nystagmus. Neck no lymphadenopathy and supple General: Negative for tenderness Chest Wall Chest: Negative for tenderness Resp normal respiratory effort and normal air movement Effort and Inspection: symmetric chest movement; Negative for respiratory distress Cardio regular rate, regular rhythm and no murmurs Peripheral Pulses: pulses 2+ throughout GI normal to inspection, nondistended, normoactive bowel sounds and non-tender Palpation: Negative for guarding or rebound tenderness present Back/Spine no CVA tenderness and no thoracic nor lumbar tenderness Extremity normal to inspection General Extremety ED: Negative for edema or tenderness General Extremity: Negative for edema Neuro oriented x3, CN's II-XII intact bilaterally and no sensory deficits noted Sensorium / Orientation: awake and alert Skin no rashes or lesions noted and no wounds MDM MDM MDM Narrative Medical decision making narrative: Patient with no focal deficits new onset headache with vertigo symptoms. I did check labs, CT head ordered. Was given IV Reglan 5 mg due to vertigo symptoms. Reported to me by truck technician there is concerns for bleed therefore this was reviewed, noted large left subdural on the left side. Acute there was concern for small chronic subdural on the right side. There is no shifting. She is ordered for vitamin K due to being on warfarin. I Discussed with patient she is a full code and would want surgical intervention if needed. Labs return INR at 3.0 hemoglobin 12.6. Creatinine 1.11. Blood pressure vital stable she is alert and oriented x3. Patient is sure she did not hit her head recently. I discussed with [facility] transfer line with [facility] team, she is auto excepted to [facility] ED under the service of Dr. Lopez. Patient and family updated. Oxygen started due to ICH. 1610: CT scan per radiology read noteds acute bilateral subdural hematoma, left up to 13mm, no midline shift. Lab Data Attestation: I reviewed the patient's lab results. Labs: Laboratory Results - last 24 hr 04/29/21 04/29/21 04/29/21 15:20 15:20 15:20 WBC 7.7 RBC 4.07 L Hgb 12.6 Hct 39.2 MCV 96.3 MCH 31.0 MCHC 32.1 RDW Std Deviation 52.5 H RDW Coeff of Se 14.7 H Plt Count 160 MPV 10.8 Immature Gran % (Auto) 0.500 Neut % (Auto) 70.4 H Lymph % (Auto) 20.1 [place] % (Auto) 6.3 Eos % (Auto) 2.0 Baso % (Auto) 0.7 Absolute Neuts (auto) 5.4 Absolute Lymphs (auto) 1.54 Nucleated RBC % 0 PT 30.3 H INR 3.0 APTT Sodium 138 Potassium 4.5 Chloride 101 Carbon Dioxide 29.0 Anion Gap 8 BUN 21 H Creatinine 1.11 H Estim Creat Clear Calc 31.21 Est GFR (MDRD) Af Amer 60 Est GFR (MDRD) Non-Af 50 L BUN/Creatinine Ratio 18.9 Glucose 107 H Calcium 9.5 04/29/21 15:20 WBC RBC Hgb Hct MCV MCH MCHC RDW Std Deviation RDW Coeff of Se Plt Count MPV Immature Gran % (Auto) Neut % (Auto) Lymph % (Auto) [place] % (Auto) Eos % (Auto) Baso % (Auto) Absolute Neuts (auto) Absolute Lymphs (auto) Nucleated RBC % PT INR APTT 44.5 H Sodium Potassium Chloride Carbon Dioxide Anion Gap BUN Creatinine Estim Creat Clear Calc Est GFR (MDRD) Af Amer Est GFR (MDRD) Non-Af BUN/Creatinine Ratio Glucose Calcium Radiography Diagnostic Testing: Radiology Impression Brain CT 04/29/21 15:07 IMPRESSION: Bilateral acute subdural hematomas, largest on the left up to 13 mm, no midline shift. Small left-sided layering tentorial and interhemispheric subdural hematoma. Individualized dose optimization techniques were used for this CT. at 1559 Reported and signed by: Jomar Potter MD Electronically Signed: Jomar Potter MD at 15:57 EDT Tel , Service support , ADDENDUM: 04/29/21 1654 IMPRESSION: Bilateral acute subdural hematomas, largest on the left up to 13 mm, no midline shift. Small left-sided layering tentorial and interhemispheric subdural hematoma. Individualized dose optimization techniques were used for this CT. at 1559 Reported and signed by: Jomar Potter MD N.B. : Dr. Guerrero Wheeler MD, confirmed on 04/29/2021 16:47:42 (ET) that the referring physician received the results and does not require a verbal communication. Electronically Signed: Jomar Potter MD at 15:57 EDT Tel , Service support , Critical Care Time Critical Care Time: Yes Critical care time (excluding procedures): 30-74 minutes, Discussing w/Patient &/or Family/Curriculum Writer, Discussing w/Consultants, Arranging Admission or Transfer, Performing Direct Patient Care at Bedside and - (45 minutes) Discharge Plan Triage Chief Complaint: Nausea/Vomiting ED Provider: Guerrero Wheeler Dx/Rx/DC Orders Clinical Impression: Acute subdural hematoma, Vertigo, Headache Prescriptions: No Action warfarin [Coumadin] 3 mg tablet 3 mg PO DAILY RF: 0 warfarin [Coumadin] 1 mg tablet 1 mg PO DAILY RF: 0 mometasone 0.1 % cream 1 applic TOPICAL DAILY PRN (Reason: Itching) RF: 0 clopidogrel 75 MG tablet 75 mg PO DAILY RF: 0 insulin lispro 100 UNIT/ML solution 20 unit SQ ACHS RF: 0 bimatoprost 1 DROP bottle 1 drp EACH EYE QHS RF: 0 insulin glargine 100 unit/mL (3 mL) insulin pen 44 unit subcut QHS RF: 0 spironolactone 25 MG tablet 25 mg PO DAILY RF: 0 furosemide 20 MG tablet 20 mg PO BIDLX RF: 0 levothyroxine 75 MCG tablet 75 mcg PO DAILY@0600 RF: 0 gabapentin 100 mg capsule 100 mg PO TID RF: 0 rosuvastatin 10 mg tablet See Rx Instructions .ROUTE .COMPLEX Qty: 90 RF: 4 Primary Care Provider: Ke Zabala Referrals: Ke Zabala MD [Primary Care Provider] - Disposition Disposition: Transfer to Another Type [facility]CF Discharge Date/Time: 04/29/21 16:50
[2021-04-29 16:16] VITALS: BP 150/75; PULSE 82; RESP 17; TEMP 36.8; O2SAT 100
[2021-04-29 16:20] VITALS: BP 150/75; PULSE 86; RESP 18; O2SAT 100
--- NOTE | 2021-04-29 16:38 | ED.RN ---
[facility].
[2021-04-29 16:40] LABS: Partial Thromboplast Time 44.5 Seconds (24.1-36.2)
--- NOTE | 2021-04-29 16:45 | ED.RN ---
REPORT TO [facility].
--- NOTE | 2021-04-29 16:50 | ED.RN ---
PT OUT OF ED WITH [facility] FOR TRANSPORT TO [facility]. PT SKIN P/W/D, RESP EVEN AND UNLABORED, PT A&O X 3, NO DISTRESS NOTED.
== END 2021-04-29 16:50 | disposition other institution (70) ==
PROVIDERS: Emergency Provider Emergency Medicine; PCP Family Medicine
DX: I62.01 Nontraumatic acute subdural hemorrhage (principal); E03.9 Hypothyroidism, unspecified; E11.22 Type 2 diabetes mellitus with diabetic chronic kidney disease; E66.9 Obesity, unspecified; Z68.35 Body mass index [BMI] 35.0-35.9, adult; E78.5 Hyperlipidemia, unspecified; H40.9 Unspecified glaucoma; I13.0 Hypertensive heart and chronic kidney disease with heart failure and stage 1 through stage 4 chronic kidney disease, or unspecified chronic kidney disease; N18.30 Chronic kidney disease, stage 3 unspecified; I50.32 Chronic diastolic (congestive) heart failure; I25.10 Atherosclerotic heart disease of native coronary artery without angina pectoris; I25.2 Old myocardial infarction; I87.2 Venous insufficiency (chronic) (peripheral); J44.9 Chronic obstructive pulmonary disease, unspecified; Z87.01 Personal history of pneumonia (recurrent); Z86.718 Personal history of other venous thrombosis and embolism; Z79.4 Long term (current) use of insulin; Z79.01 Long term (current) use of anticoagulants; Z79.02 Long term (current) use of antithrombotics/antiplatelets; Z79.899 Other long term (current) drug therapy; Z87.891 Personal history of nicotine dependence
CPT/HCPCS: 70450; 80048; 85025; 85610; 85730; 96365; 96374; 99285; J7040; J7050; A4216; J3490

== ENCOUNTER 2021-05-05 17:43 | Emergency (ER) | payer MEDICARE, OTHER, SELFPAY ==
[2021-05-05 17:45] VITALS: BP 103/51; PULSE 78; RESP 18; TEMP 36.8; O2SAT 97; BMI 34.0
--- NOTE | 2021-05-05 18:11 | ED.VIS.LOWEX ---
HPI History of Present Illness Chief Complaint: Lower Extremity Injury Detail of Chief Complaint: Right foot pain that started yesterday Informant: patient Narrative Narrative: Patient presents to the emergency department complaint of right foot pain that started yesterday. Patient today noted that it was more red and swollen and she cannot put weight on it. She denies any injury. Patient states she was recently admitted to [facility] and flown from our facility to their facility for spontaneous intracranial hemorrhage. Patient states that she was taken off all her anticoagulation including Coumadin and Plavix. Patient does not have history of gout or pseudogout. Patient presents via EMS as she was unable to bear weight. [facility] Medical History Atherosclerotic heart disease of [place] coronary artery without angina pectoris CHF (congestive heart failure) Chronic diastolic heart failure CKD (chronic kidney disease) stage 3, GFR 30-59 ml/min Community acquired pneumonia COPD (chronic obstructive pulmonary disease) Coronary artery disease Diffuse cystic mastopathy Essential hypertension First degree AV block Glaucoma Hematoma History of non-ST elevation myocardial infarction (NSTEMI) History of recurrent deep vein thrombosis (DVT) HLD (hyperlipidemia) [place] (hard of hearing) HTN (hypertension) Hypothyroidism Left ventricular hypertrophy Obesity Old myocardial infarction Pancreatic pseudocyst Pes planus Sciatica Statin intolerance Thrombocytopenia Type II diabetes mellitus Venous insufficiency Home Medications bimatoprost 1 drp EACH EYE QHS 08/19/13 [History Last Taken 03/29/16] insulin lispro 20 unit SQ ACHS 08/19/13 [History Last Taken 03/29/16] furosemide 20 mg PO BIDLX 12/21/17 [History Last Taken Unknown] levothyroxine 75 mcg PO DAILY@0600 12/21/17 [History Last Taken Unknown] insulin glargine 100 unit/mL (3 mL) subcutaneous pen 44 unit SUBCUT QHS ml 09/06/19 [History Last Taken Unknown] gabapentin 100 mg capsule 100 mg PO TID 12/17/20 [History Last Taken Unknown] hydrocodone-acetaminophen 1 tab PO Q4H PRN PRN 2 Days #10 tablet 05/05/21 [Rx Last Taken Unknown] levetiracetam 750 mg PO BID 05/05/21 [History Last Taken Unknown] lisinopril 5 mg PO DAILY 05/05/21 [History Last Taken Unknown] multivitamin 1 tab PO DAILY 05/05/21 [History Last Taken Unknown] prednisone 20 mg PO BID #10 tab 05/05/21 [Rx Last Taken Unknown] Allergy/AdvReac Type Severity Reaction Status Date / Time celecoxib [From Celebrex] Allergy Severe Itching Verified 04/29/21 13:46 Penicillins Allergy Swelling Verified 04/29/21 13:46 Sulfa (Sulfonamide Allergy Rash Verified 04/29/21 13:46 Antibiotics) atorvastatin AdvReac Severe myalgias Verified 04/29/21 13:46 meperidine HCl [From Demerol] AdvReac Other Verified 04/29/21 13:46 Family History Mother Diabetes Surgical History History of coronary artery bypass surgery (~04/06/16) Social History Smoking Status: Former smoker alcohol intake: never substance use type: does not use caffeine: No ROS ROS ED Constitutional Constitutional ED: Reports systems reviewed and no addt'l complaints, except as documented; Denies body ache(s), change in weight or chills Eyes Eyes: Denies acute decrease in peripheral vision, change in vision, double vision or loss of vision ENT ENT ED: Reports none; Denies ear pain, lip swelling, loss taste/smell, neck pain, otalgia or sore throat Cardiovascular Cardiovascular: Reports none; Denies abdominal pain, chest pain with activity, leg edema, lightheadedness, palpitations, rapid heart rate or syncope Respiratory/Chest Respiratory/Chest: Reports none; Denies change in mental status, dry cough, dyspnea, hemoptysis, shortness of breath at rest or shortness of breath with exertion Gastrointestinal Gastrointestinal: Reports none; Denies abdominal pain, change in stool character, diarrhea, hematemesis, hematochezia, melena, rectal bleeding or vomiting Genitourinary Genitourinary ED: Reports none; Denies abdominal discomfort, anuria, dysuria, genital pain or polyuria Musculoskeletal Musculoskeletal: Reports none and other Details: Right foot pain ; Denies arthralgias, back pain, difficulty walking, extremity pain, muscle weakness or myalgias Integumentary Reports none; Denies abscess or rash Neurologic Neurologic: Reports none; Denies abnormal gait, confusion, focal weakness, frequent falls, headache(s), loss of vision, numbness, paresthesias, radicular pain, vertigo or weakness Psychiatric Psychiatric: Reports systems reviewed and no addt'l complaints, except as documented and none; Denies behavioral changes, confusion, difficulty concentrating, hallucinations, suicidal ideation, tactile hallucinations or visual hallucinations Endocrine Endocrinology: Denies none, cold intolerance, excessive sweating, fatigue or heat intolerance Hematologic/Lymphatic Hematologic/Lymphatic: Reports none; Denies anemia, easy bleeding or easy bruising Allergic/Immunologic Allergic/Immunologic ED: Denies as per HPI, none, lip swelling, mouth swelling, throat swelling, tongue swelling or hives EXAM Physical Exam Const Vital Signs: 05/05/21 17:45 Temperature 98.3 F Temperature Source Oral Pulse Rate 78 Respiratory Rate 18 Blood Pressure 103/51 L Blood Pressure Mean 68 Pulse Ox 97 Oxygen Delivery Method Room Air Positive well nourished and well developed General Appearance ED: well developed and NAD HEENT Reports TM's clear and moist mucous membranes normocephalic and atraumatic; Negative for trauma or tenderness Tympanic Membrane ED: Yes TM's clear Eyes PERRL and EOMs intact bilaterally General Eye ED: Negative for pale conjunctiva or scleral icterus Neck no lymphadenopathy, supple and no JVD General: Negative for tenderness Chest Wall inspection of chest normal and palpation of chest normal Chest: Negative for tenderness Resp normal respiratory effort and clear to auscultation bilaterally Effort and Inspection: Negative for respiratory distress or pain with movement Auscultation: Negative for rhonchi, wheezes or diminished lung sounds Cardio regular rate, regular rhythm, S1 normal heart sound, S2 normal heart sound and no murmurs Peripheral Pulses: pulses 2+ throughout GI normal to inspection, nondistended, normoactive bowel sounds, soft to palpation, non-tender, non-distended and no masses Back/Spine no CVA tenderness and no thoracic nor lumbar tenderness Extremity Extremity Narrative: Evaluation of the right foot reveals some faint erythema over the first MTP joint with tenderness to palpation. Patient also with some faint erythema over the medial aspect of the ankle joint with tenderness to palpation. Patient has normal dorsal pedal and posterior tibial pulses. Exam consistent with gout. General Extremety ED: Negative for edema General Extremity: Negative for edema Neuro oriented x3, CN's II-XII intact bilaterally, no sensory deficits noted and gait normal Sensorium / Orientation: awake, alert, oriented to person, oriented to place and oriented to time Motor Exam: strength 5/5 throughout and strength abnormal Psych mental status grossly normal Skin no rashes or lesions noted and no wounds MDM MDM MDM Narrative Medical decision making narrative: I suspect patient likely has a gouty arthropathy. Patient was started on prednisone and given [place] in the department. She was able to ambulate without difficulty. Patient will be started on prednisone and [place] for home. She will follow-up with her primary care physician tomorrow. Lab Data Attestation: I reviewed the patient's lab results. Discharge Plan Triage Chief Complaint: Lower Extremity Injury ED Provider: Dannie Malhotra Dx/Rx/DC Orders Clinical Impression: Acute foot pain, Acute gouty arthropathy Instructions: ED Gout, ED Gout Diet Prescriptions: New hydrocodone-acetaminophen [hydrocodone-acetaminophen] 1 TABLET tablet 1 tab PO Q4H PRN PRN (Reason: Pain) 2 Days Qty: 10 RF: 0 prednisone 20 mg tablet 20 mg PO BID Qty: 10 RF: 0 No Action insulin lispro 100 UNIT/ML solution 20 unit SQ ACHS RF: 0 bimatoprost 1 DROP bottle 1 drp EACH EYE QHS RF: 0 insulin glargine 100 unit/mL (3 mL) insulin pen 44 unit subcut QHS RF: 0 furosemide 20 MG tablet 20 mg PO BIDLX RF: 0 levothyroxine 75 MCG tablet 75 mcg PO DAILY@0600 RF: 0 gabapentin 100 mg capsule 100 mg PO TID RF: 0 multivitamin Tablet 1 tab PO DAILY RF: 0 levetiracetam 750 mg Tablet 750 mg PO BID RF: 0 lisinopril 5 mg Tablet 5 mg PO DAILY RF: 0 Primary Care Provider: Ke Zabala Referrals: Ke Zabala MD [Primary Care Provider] - Disposition Disposition: Home, Self Care
[2021-05-05] MEDS: HYDROcodone Bitartrate/Apap 5/325 Tablet PO (18:46)
[2021-05-05] MEDS: predniSONE 20 MG Tablet PO (18:47)
[2021-05-05 20:16] VITALS: RESP 18
== END 2021-05-05 20:25 | disposition home or self-care (01) ==
PROVIDERS: Emergency Provider Emergency Medicine; PCP Family Medicine
DX: M10.9 Gout, unspecified (principal); E03.9 Hypothyroidism, unspecified; E78.5 Hyperlipidemia, unspecified; H40.9 Unspecified glaucoma; I13.0 Hypertensive heart and chronic kidney disease with heart failure and stage 1 through stage 4 chronic kidney disease, or unspecified chronic kidney disease; E11.22 Type 2 diabetes mellitus with diabetic chronic kidney disease; N18.30 Chronic kidney disease, stage 3 unspecified; I50.32 Chronic diastolic (congestive) heart failure; K86.3 Pseudocyst of pancreas; I25.10 Atherosclerotic heart disease of native coronary artery without angina pectoris; I25.2 Old myocardial infarction; I87.2 Venous insufficiency (chronic) (peripheral); J44.9 Chronic obstructive pulmonary disease, unspecified; Z86.2 Personal history of diseases of the blood and blood-forming organs and certain disorders involving the immune mechanism; Z87.01 Personal history of pneumonia (recurrent); Z86.718 Personal history of other venous thrombosis and embolism; Z79.4 Long term (current) use of insulin; Z79.899 Other long term (current) drug therapy; Z87.891 Personal history of nicotine dependence
CPT/HCPCS: 99285

== ENCOUNTER 2021-05-26 19:47 | Emergency (ER) | payer MEDICARE, OTHER, SELFPAY ==
[2021-05-26 19:48] VITALS: BP 141/62; PULSE 70; RESP 16; TEMP 37.1; O2SAT 92; BMI 32.1
[2021-05-26 20:02] VITALS: O2SAT 88; O2SAT 93
--- NOTE | 2021-05-26 20:07 | CT_ITS ---
INDICATION: abdominal pain EXAMINATION: CT ABDOMEN AND PELVIS WITH CONTRAST - CT Abdomen And Pelvis W/ Contrast Injection TECHNIQUE: Helically acquired images were obtained of the abdomen and pelvis following IV contrast. A radiation dose optimization technique was used for this scan. IV Contrast dosage and agent: 100 mL of [id number]. Oral contrast: None. COMPARISON: None. FINDINGS: There is significant motion artifact and mild motion artifact midabdomen. LOWER CHEST: Very limited assessment of the lungs due to motion however there does appear to be abnormal reticular opacities and some increased lung attenuation. Dense coronary artery intimal calcifications and/or stents are exemplified. There are some aortic valvular calcifications. LIVER: 3.3 cm fluid density left hepatic lobe consistent with simple cyst. Normal size and contour liver. Normal density. GALLBLADDER AND BILIARY TREE: Gallbladder surgically absent. Common bile duct is within normal limits. No intra or extrahepatic biliary ductal dilation. PANCREAS: Distal body and tail are surgically absent or fatty-replaced. Assessment is limited by motion. SPLEEN: Normal size without focal cystic or solid mass. ADRENAL GLANDS: No nodules. KIDNEYS AND URETERS: Multiple, 5 or 6 right and left-sided peripheral fluid densities ranging from 8 mm to 33 mm in size consistent with cysts. No hydronephrosis. PERITONEUM: No ascites or free air. No other fluid collection. BOWEL: No evidence of acute appendicitis. No stomach or bowel distension. No focal inflammatory change. Multiple diverticuli seen in the descending and sigmoid colon. LYMPH NODES: No enlarged mesenteric or retroperitoneal lymph nodes. VESSELS: Extensive atherosclerotic intimal calcification abdominal aorta and branch vessels. No aneurysmal dilation. URINARY BLADDER: There is bladder dehiscence into the vagina consistent with a cystocele. REPRODUCTIVE ORGANS: No pelvic masses. ABDOMINAL WALL: 3 separate fascial defects anterior abdominal wall associated with fat filled hernia sacs. No herniated bowel loops. No evidence of obstruction or inflammatory changes. BONES: Advanced degenerative changes lumbar spine with areas of central canal stenosis due to degenerative disc disease and facet arthropathy L3-4 and L4-[address]/Abdomen/Pelvis W IV Cont ONLY IMPRESSION: Limited assessment due to motion, especially in the upper abdomen and lung bases. It is. The abnormal interstitial thickening and airspace opacities suspicious for multifocal pneumonia. Cystocele. 3 separate fascial defects midline anterior abdominal wall; umbilical and supraumbilical in location. Atherosclerosis. Diverticulosis without diverticulitis. Distal pancreatic body and tail atrophy and or dissection. Multiple right and left renal cysts. Advanced degenerative changes lumbar spine with central canal stenosis at L3-4 and L4-5. Electronically Signed: Juan Ball DO at 22:32 EDT Tel , Service support ,
--- NOTE | 2021-05-26 20:09 | ED.VIS.GI ---
HPI HPI - GI History of Present Illness Chief Complaint: Abd Pain Informant: patient and family Abdominal Pain/Flank Pain Onset: Yesterday Context: Gradual Onset Timing: Continuous Quality: Cramping Location: Diffuse and Right Flank Current Severity: Moderate Maximum Severity: Moderate Nausea/Vomiting/Emesis GI Symptom: Negative for Nausea and Vomiting Diarrhea/Melena/Hematochezia GI Symptom: Positive for Diarrhea Onset: Today Stool Quality: Positive for Loose Associated Symptoms Associated Symptoms: Negative for Dysuria, Frequency and Hematuria Narrative Narrative: 86-year-old female extensive past medical history of coronary disease, bypass surgery, diabetes, hypertension, chronic kidney disease, COPD, DVT and prior intercranial bleed for which she was recently hospitalized. She is currently off blood thinners. States last night started having right flank pain is now diffuse. She denies any history of kidney stones or any trauma. She thinks it is related to food. She states she has a history of muscle spasms took a muscle relaxant with some relief but now the pain is back. She states she had a prior hysterectomy and open heart surgery. She also states she has had a cholecystectomy and appendectomy. She did have mild diarrhea today no melena. No fever. No dysuria. Prior similar symptoms: Yes Recent Illness/Hospitalization: No PFSH PFSH Medical History Atherosclerotic heart disease of [place] coronary artery without angina pectoris CHF (congestive heart failure) Chronic diastolic heart failure CKD (chronic kidney disease) stage 3, GFR 30-59 ml/min Community acquired pneumonia COPD (chronic obstructive pulmonary disease) Coronary artery disease Diffuse cystic mastopathy Essential hypertension First degree AV block Glaucoma Hematoma History of non-ST elevation myocardial infarction (NSTEMI) History of recurrent deep vein thrombosis (DVT) HLD (hyperlipidemia) [place] (hard of hearing) HTN (hypertension) Hypothyroidism Left ventricular hypertrophy Obesity Old myocardial infarction Pancreatic pseudocyst Pes planus Sciatica Statin intolerance Thrombocytopenia Type II diabetes mellitus Venous insufficiency Home Medications bimatoprost 1 drp EACH EYE QHS 08/19/13 [History Last Taken 03/29/16] insulin lispro 20 unit SQ ACHS 08/19/13 [History Last Taken 03/29/16] furosemide 20 mg PO BIDLX 12/21/17 [History Last Taken Unknown] levothyroxine 75 mcg PO DAILY@0600 12/21/17 [History Last Taken Unknown] insulin glargine 100 unit/mL (3 mL) subcutaneous pen 44 unit SUBCUT QHS ml 09/06/19 [History Last Taken Unknown] gabapentin 100 mg capsule 100 mg PO TID 12/17/20 [History Last Taken Unknown] hydrocodone-acetaminophen 1 tab PO Q4H PRN PRN 2 Days #10 tablet 05/05/21 [Rx Last Taken Unknown] levetiracetam 750 mg PO BID 05/05/21 [History Last Taken Unknown] lisinopril 5 mg PO DAILY 05/05/21 [History Last Taken Unknown] multivitamin 1 tab PO DAILY 05/05/21 [History Last Taken Unknown] prednisone 20 mg PO BID #10 tab 05/05/21 [Rx Last Taken Unknown] Allergy/AdvReac Type Severity Reaction Status Date / Time celecoxib [From Celebrex] Allergy Severe Itching Verified 05/26/21 19:54 Penicillins Allergy Swelling Verified 05/26/21 19:54 Sulfa (Sulfonamide Allergy Rash Verified 05/26/21 19:54 Antibiotics) atorvastatin AdvReac Severe myalgias Verified 05/26/21 19:54 meperidine HCl [From Demerol] AdvReac Other Verified 05/26/21 19:54 Family History Mother Diabetes Surgical History History of coronary artery bypass surgery (~04/06/16) Social History Smoking Status: Former smoker alcohol intake: never substance use type: does not use caffeine: No ROS ROS ED ROS Narrative Diarrhea. Abdominal pain. Review of Systems ROS Unobtainable: Denies due to encephalopathy Constitutional Constitutional ED: Denies fever(s) or subjective ENT ENT ED: Denies ear pain or sore throat Cardiovascular Cardiovascular: Denies chest pain or palpitations Respiratory/Chest Respiratory/Chest: Denies cough, dyspnea or sputum Gastrointestinal Gastrointestinal: Reports abdominal pain and diarrhea; Denies nausea or vomiting Genitourinary Genitourinary ED: Denies dysuria Musculoskeletal Musculoskeletal: Denies myalgias Integumentary Denies rash Neurologic Neurologic: Denies headache(s) Psychiatric Psychiatric: Denies depression Endocrine Endocrinology: Denies polyuria Hematologic/Lymphatic Hematologic/Lymphatic: Denies easy bruising Allergic/Immunologic Allergic/Immunologic ED: Denies urticaria EXAM Physical Exam Narrative Exam Narrative: Older female. Vital signs stable afebrile. HEENT exam unremarkable. Neck nontender no lymphadenopathy. Lungs clear to auscultation bilaterally. Heart regular rhythm no murmur. Rate about 70. Abdomen soft. Distended. Diffusely tender in both the right and left side. Helical hernia which appears to be chronic. Tenderness to palpation. No pulsatile mass. No specific right upper or McBurney's point tenderness. Positive bowel sounds. Moving all 4 extremities. Nontender no edema. Back nontender. Neurologically she is awake and alert. Moving all 4 extremities. Const Vital Signs: 05/26/21 19:48 05/26/21 20:02 Temperature 98.7 F Temperature Source Temporal Pulse Rate 70 Respiratory Rate 16 Blood Pressure 141/62 H Blood Pressure Mean 88 Pulse Ox 92 93 Oxygen Delivery Method Room Air Nasal Cannula Oxygen Flow Rate (L/min) 2 Positive well nourished, well developed and obese; Negative for cachectic, contractures or unkempt General Appearance ED: well developed; Negative for unkempt, cachectic or contractures Nutritional Appearance: obese; Negative for cachectic HEENT Reports moist mucous membranes normocephalic and atraumatic Eyes PERRL and EOMs intact bilaterally Neck no lymphadenopathy, supple and no JVD General: Negative for tenderness Resp normal respiratory effort and clear to auscultation bilaterally Auscultation: Negative for rales, rhonchi or wheezes Cardio regular rate, regular rhythm, S1 normal heart sound, S2 normal heart sound and no murmurs GI no masses; Negative for non-tender or non-distended GI Narrative: Diffusely tender. Umbilical hernia. Inspection: abdominal distention Auscultation: normoactive bowel sounds; Negative for hyperactive bowel sounds or hypoactive bowel sounds Palpation: soft, tender, hepatomegaly and hernia; Negative for guarding, rigid, splenomegaly, mass, pulsatile mass or rebound tenderness present Back/Spine no CVA tenderness Extremity full ROM General Extremety ED: Negative for edema or tenderness General Extremity: Negative for edema Neuro Sensorium / Orientation: alert, oriented to person, oriented to place and oriented to time Motor Exam: strength 5/5 throughout Psych mental status grossly normal Appearance: Negative for unkempt Skin Lesions: no lesions Rashes: no rashes MDM MDM MDM Narrative Medical decision making narrative: Older female with diffuse abdominal pain. Repeat exam patient is doing well at 10:35 PM. Abdomen is benign. She and I went over all of her test results. She will be discharged home abdominal pain uncertain etiology. Lab Data Attestation: I reviewed the patient's lab results. Lab results narrative: CBC shows a white count 8.5. Hemoglobin 11.9. Platelets 127. Electrolytes gap is 7 BUN of 18 creatinine 1.1. Liver enzymes are unremarkable. Lipase is 23. Urinalysis is negative. No signs of infection. CAT scan is read by the radiologist showed no acute abnormality. There are chronic changes. Labs: Laboratory Results - last 24 hr 05/26/21 05/26/21 05/26/21 19:55 19:55 21:20 WBC 8.5 RBC 3.89 L Hgb 11.9 L Hct 37.6 MCV 96.7 MCH 30.6 MCHC 31.6 L RDW Std Deviation 51.7 H RDW Coeff of Se 14.6 Plt Count 127 L MPV 10.8 Immature Gran % (Auto) 0.700 Neut % (Auto) 68.8 Lymph % (Auto) 21.4 [place] % (Auto) 6.7 Eos % (Auto) 2.2 Baso % (Auto) 0.2 Absolute Neuts (auto) 5.9 Absolute Lymphs (auto) 1.82 Nucleated RBC % 0 Sodium 140 Potassium 4.0 Chloride 102 Carbon Dioxide 31.0 Anion Gap 7 BUN 18 Creatinine 1.10 H Estim Creat Clear Calc 35.64 Est GFR (MDRD) Af Amer 61 Est GFR (MDRD) Non-Af 50 L BUN/Creatinine Ratio 16.4 Glucose 131 H Calcium 9.2 Total Bilirubin 0.60 AST 16 ALT 22 Alkaline Phosphatase 70 Total Protein 7.4 Albumin 3.3 Globulin 4.1 Albumin/Globulin Ratio 0.8 L Lipase 23 L Urine Color Yellow Urine Clarity Clear Urine pH 6.5 Ur Specific [place] 1.010 Urine Protein Negative Urine Glucose (UA) Normal Urine Ketones Negative Urine Occult Blood Negative Urine Nitrite Negative Urine Bilirubin Negative Urine Urobilinogen Normal Ur Leukocyte Esterase Negative Urine RBC 0 SEEN Urine WBC 0 SEEN Ur Squamous Epith Cells 0 SEEN Urine Bacteria 0 SEEN Urine Mucus 0 SEEN Radiography Diagnostic Testing: Clinical Impression(s) from Imaging Studies Abdomen/Pelvis CT 05/26/21 20:07 IMPRESSION: Limited assessment due to motion, especially in the upper abdomen and lung bases. It is. The abnormal interstitial thickening and airspace opacities suspicious for multifocal pneumonia. Cystocele. 3 separate fascial defects midline anterior abdominal wall; umbilical and supraumbilical in location. Atherosclerosis. Diverticulosis without diverticulitis. Distal pancreatic body and tail atrophy and or dissection. Multiple right and left renal cysts. Advanced degenerative changes lumbar spine with central canal stenosis at L3-4 and L4-5. Electronically Signed: Juan Ball DO at 22:32 EDT Tel , Service support , Discharge Plan Triage Chief Complaint: Abd Pain ED Provider: Rosalio Ruiz Dx/Rx/DC Orders Clinical Impression: Abdominal pain in female Instructions: Abdominal Pain Prescriptions: No Action insulin lispro 100 UNIT/ML solution 20 unit SQ ACHS RF: 0 bimatoprost 1 DROP bottle 1 drp EACH EYE QHS RF: 0 insulin glargine 100 unit/mL (3 mL) insulin pen 44 unit subcut QHS RF: 0 furosemide 20 MG tablet 20 mg PO BIDLX RF: 0 levothyroxine 75 MCG tablet 75 mcg PO DAILY@0600 RF: 0 gabapentin 100 mg capsule 100 mg PO TID RF: 0 multivitamin Tablet 1 tab PO DAILY RF: 0 levetiracetam 750 mg Tablet 750 mg PO BID RF: 0 lisinopril 5 mg Tablet 5 mg PO DAILY RF: 0 hydrocodone-acetaminophen [hydrocodone-acetaminophen] 1 TABLET tablet 1 tab PO Q4H PRN PRN (Reason: Pain) 2 Days Qty: 10 RF: 0 prednisone 20 mg tablet 20 mg PO BID Qty: 10 RF: 0 Primary Care Provider: Ke Zabala Referrals: Ke Zabala MD [Primary Care Provider] - 3-5 Days if not improving Activity Restrictions/Additional Instructions: Plenty of fluids and rest. Tylenol for pain. Follow-up with your doctor if not improving. Return to the emergency department if you are feeling worse such as increasing pain, intractable vomiting or fever. Your test today were unremarkable. Disposition Disposition: Home, Self Care
[2021-05-26 20:19] LABS: Absolute Lymphocyte Count 1.82 X10^3/uL (0.83-4.51); Absolute Neutrophil Count 5.9 X10^3/uL (2.0-7.7); Basophil# 0.02 X10^3/uL; Basophil% 0.2 % (0-1); Eosinophil# 0.19 X10^3/uL; Eosinophils% 2.2 % (0-5); Hematocrit 37.6 % (37-47); Hemoglobin 11.9 g/dL (12.0-15.0); Lymphocyte # 1.82 X10^3/ul (0.83-4.51); Lymphocyte % 21.4 % (19-41); Mean Corp Hgb Conc 31.6 g/dL (32-36); Mean Corpuscular Hgb 30.6 pg (27.0-32.0); Mean Corpuscular Volume 96.7 fL (81-99); Mean Platelet Vol. 10.8 fl (6.2-12.0); Monocyte# 0.57 X10^3/uL; Monocyte% 6.7 % (0-10); NRBC Flagged by Analyzer 0 % (0-5); Neutrophil # 5.85 X10^3/uL (2.7-7.7); Neutrophil % 68.8 % (47-70); Platelet Count 127 K/mm3 (150-450); RBC Distribution Width CV 14.6 % (11.6-14.6); RBC Distribution Width SD 51.7 fl (35.1-43.9); Red Blood Count 3.89 M/mm3 (4.2-5.4); White Blood Count 8.5 K/mm3 (4.4-11.0)
[2021-05-26] MEDS: Morphine 4 MG/ML Syringe 6 MG IV (20:19)
[2021-05-26] MEDS: 0.9% Normal Saline 1,000 ML 1000 ML IV (20:20)
[2021-05-26] MEDS: Ondansetron 4 MG/2 ML Vial IV (20:20)
[2021-05-26 20:38] LABS: ALB/GLOB Ratio 0.8 RATIO (0.9-2.4); AST(SGOT) 16 U/L (15-37); Alanine Aminotransfer ALT/SGPT 22 U/L (13-56); Albumin, Serum 3.3 g/dL (3.2-5.0); Alkaline Phosphatase 70 U/L (45-117); Anion Gap 7 (5-15); BUN 18 mg/dL (7-18); BUN/Creat Ratio 16.4 RATIO (10-20); Calcium,Total 9.2 mg/dL (8.5-10.1); Chloride 102 mmol/L (98-107); EST Glomerular Filtration Rate 50 mL/min (>60); Est Glom Filt Rate - Afr Amer 61 mL/min (>60); Estimated Creatinine Clearance 35.64 ml/min; Globulin 4.1 g/dL (2.2-4.2); Glucose 131 mg/dL (74-106); Lipase 23 U/L (73-393); Protein, Total 7.4 g/dL (6.4-8.2); Sodium Level 140 mmol/L (136-145)
[2021-05-26 21:27] LABS: Bacteria 0 SEEN /hpf (None Seen); Mucous, Urine 0 SEEN /hpf (<or=2+); Red Blood Cells-Urine 0 SEEN /hpf (0-5); Squamous Epithelial Cells - UA 0 SEEN /hpf (5-10); White Blood Cells 0 SEEN /hpf (0-5)
[2021-05-26 21:30] LABS: Color, Urine Yellow (Yellow); Glucose, Dipstick Normal (Normal); Ketone-Dipstick Negative (Negative); Leukocyte Esterase-Dipstick Negative /ul (Negative); Nitrite-Dipstick Negative (Negative); Occult Blood-Urine Negative /ul (Negative); Protein-Dipstick Negative (Negative); Urine Bilirubin Dipstick Negative (Negative); Urine Clarity Clear (Clear); Urine Urobilinogen Normal (Normal); Urine pH 6.5 (5.0 - 8.0)
[2021-05-26] MEDS: morphine 8 MG/ML Syringe 6 MG IV (21:34)
[2021-05-26 23:05] VITALS: RESP 17
== END 2021-05-26 23:05 | disposition home or self-care (01) ==
PROVIDERS: Emergency Provider Emergency Medicine; PCP Family Medicine
DX: R10.9 Unspecified abdominal pain (principal); E03.9 Hypothyroidism, unspecified; E66.9 Obesity, unspecified; Z68.32 Body mass index [BMI] 32.0-32.9, adult; E78.5 Hyperlipidemia, unspecified; H40.9 Unspecified glaucoma; I13.0 Hypertensive heart and chronic kidney disease with heart failure and stage 1 through stage 4 chronic kidney disease, or unspecified chronic kidney disease; E11.22 Type 2 diabetes mellitus with diabetic chronic kidney disease; I25.10 Atherosclerotic heart disease of native coronary artery without angina pectoris; I25.2 Old myocardial infarction; I50.32 Chronic diastolic (congestive) heart failure; I87.2 Venous insufficiency (chronic) (peripheral); N18.30 Chronic kidney disease, stage 3 unspecified; M48.061 Spinal stenosis, lumbar region without neurogenic claudication; J44.9 Chronic obstructive pulmonary disease, unspecified; Z86.2 Personal history of diseases of the blood and blood-forming organs and certain disorders involving the immune mechanism; Z87.01 Personal history of pneumonia (recurrent); Z86.718 Personal history of other venous thrombosis and embolism; Z79.4 Long term (current) use of insulin; Z79.899 Other long term (current) drug therapy; Z87.891 Personal history of nicotine dependence
CPT/HCPCS: 74177; 80053; 81001; 83690; 85025; 96361; 96374; 96375; 99285; Q9967; J2405

== ENCOUNTER 2021-07-25 09:25 | Emergency (ER) | payer MEDICARE, OTHER, SELFPAY ==
[2021-07-25 09:27] VITALS: BP 126/58; PULSE 71; RESP 16; TEMP 36.5; O2SAT 97; BMI 32.5
--- NOTE | 2021-07-25 09:41 | RAD_ITS ---
History: Pain Left ankle 3 views: Findings: No acute fracture or subluxation. Narrowing of the tarsal joints. Prominent plantar calcaneal spurring noted with large area of calcification within the plantar fascia indicative of chronic plantar fasciitis. Soft tissue swelling is present. IMPRESSION: Diffuse osteoarthritic changes of the ankle. Chronic plantar fasciitis. at 1023 Reported and signed by: Puneet Stewart MD Electronically Signed: Puneet Stewart MD at 10:22 EST Tel , Service support , RAD/Ankle min 3 Views
--- NOTE | 2021-07-25 09:47 | EDS_ITS ---
HPI History of Present Illness Chief Complaint: Lower Extremity Injury Narrative Narrative: Patient presents with left ankle pain and swelling in the left ankle for about a week, she twisted it but had minimal pain at the time and it seems to be getting worse. No fevers or chills. She has no calf pain. She is anticoagulated on Coumadin. She has no knee pain or any other injury. No chest pain or shortness of breath. PFSH PFS Medical History Atherosclerotic heart disease of [place] coronary artery without angina pectoris Brain bleed CHF (congestive heart failure) Chronic diastolic heart failure CKD (chronic kidney disease) stage 3, GFR 30-59 ml/min Community acquired pneumonia COPD (chronic obstructive pulmonary disease) Coronary artery disease Diffuse cystic mastopathy Essential hypertension First degree AV block Glaucoma Hematoma History of non-ST elevation myocardial infarction (NSTEMI) History of recurrent deep vein thrombosis (DVT) HLD (hyperlipidemia) [place] (hard of hearing) HTN (hypertension) Hypothyroidism Left ventricular hypertrophy Obesity Old myocardial infarction Pancreatic pseudocyst Pes planus Sciatica Statin intolerance Thrombocytopenia Type II diabetes mellitus Venous insufficiency Home Medications bimatoprost 1 drp EACH EYE QHS 08/19/13 [History Last Taken 03/29/16] insulin lispro 12 - 14 unit SQ ACHS 08/19/13 [History Last Taken 03/29/16] furosemide 20 mg PO BIDLX 12/21/17 [History Last Taken Unknown] levothyroxine 75 mcg PO DAILY@0600 12/21/17 [History Last Taken Unknown] insulin glargine 100 unit/mL (3 mL) subcutaneous pen 34 unit SUBCUT QHS ml 09/06/19 [History Last Taken Unknown] levetiracetam 750 mg PO BID 05/05/21 [History Last Taken Unknown] lisinopril 5 mg PO DAILY 05/05/21 [History Last Taken Unknown] multivitamin 1 tab PO DAILY 05/05/21 [History Last Taken Unknown] prednisone 20 mg PO BID #10 tab 05/05/21 [Rx Last Taken Unknown] docusate sodium 100 mg PO BID 07/25/21 [History Last Taken Unknown] ergocalciferol (vitamin D2) [Vitamin D2] 50,000 unit PO QWEEK 07/25/21 [History Last Taken Unknown] flaxseed oil 1,000 mg PO BID 07/25/21 [History Last Taken Unknown] oxycodone-acetaminophen [Percocet] 1 tab PO Q8H PRN 3 Days #10 tab 07/25/21 [Rx Last Taken Unknown] pravastatin 10 mg PO DAILY 07/25/21 [History Last Taken Unknown] warfarin 2 mg PO TUTHSA 07/25/21 [History Last Taken Unknown] warfarin 3 mg PO SUMOWEFR 07/25/21 [History Last Taken Unknown] Allergy/AdvReac Type Severity Reaction Status Date / Time celecoxib [From Celebrex] Allergy Severe Itching Verified 07/25/21 09:27 Penicillins Allergy Swelling Verified 07/25/21 09:27 Sulfa (Sulfonamide Allergy Rash Verified 07/25/21 09:27 Antibiotics) atorvastatin AdvReac Severe myalgias Verified 07/25/21 09:27 meperidine HCl [From Demerol] AdvReac Other Verified 07/25/21 09:27 Family History Mother Diabetes Surgical History History of coronary artery bypass surgery (~04/06/16) Social History Smoking Status: Former smoker alcohol intake: never substance use type: does not use caffeine: No ROS ROS ED ROS Narrative Past medical history: Patient has an extensive medical history I reviewed as a audrey. Medications: Reviewed Social history: Noncontributory Review of systems: All systems negative except as indicated General: No fever Eyes: No visual changes ENT: No upper airway congestion, normal voice Neck: No neck pain Cardiovascular: No chest pain Respiratory: No shortness of breath or cough Gastrointestinal: No abdominal pain, nausea vomiting or diarrhea Genitourinary: No dysuria Musculoskeletal: Ankle pain as in HPI Skin: No rash Neurological: No memory loss, confusion or any focal weakness Psych: No recent behavioral changes Hematologic: No easy bleeding or easy bruising EXAM Physical Exam Narrative Exam Narrative: Physical exam General: Patient appears chronically ill. She appears relatively comfortable in the bed. Head: Normocephalic, Atraumatic Eyes: Conjunctiva not pale ENT: Moist mucous membranes Neck: Supple, Nontender, No lymphadenopathy Cardiovascular: Regular rate, Regular rhythm Respiratory: No distress, CTA bilaterally Abdomen: Soft, Nontender, Nondistended Back: Nontender, Normal Inspection. Negative for: CVA tenderness Extremities: Left ankle shows swelling, there is no erythema or calor. It is quite tender. No laxity. No calf pain, she does have chronic varicosities. Skin: Normal color, No rash Neurological: Alert, Normal Strength, Normal Sensation Psychological: Normal affect Const Vital Signs: 07/25/21 09:27 Temperature 97.7 F L Temperature Source Temporal Pulse Rate 71 Respiratory Rate 16 Blood Pressure 126/58 H Blood Pressure Mean 80 Pulse Ox 97 Oxygen Delivery Method Room Air MDM MDM MDM Narrative Medical decision making narrative: Patient's work-up is unremarkable, CRP is slightly elevated this is likely secondary to the gouty arthritis that she has otherwise there is no evidence of joint infection. She is given analgesia and she improved in the ED. I will give her some analgesia for home. If anything worsen she is to return. She understands this. Lab Data Labs: Laboratory Results - last 24 hr 07/25/21 07/25/21 07/25/21 09:50 09:50 09:50 WBC 7.3 RBC 4.27 Hgb 12.4 Hct 39.6 MCV 92.7 MCH 29.0 MCHC 31.3 L RDW Std Deviation 50.5 H RDW Coeff of Se 14.7 H Plt Count 132 L MPV 11.3 Immature Gran % (Auto) 0.400 Neut % (Auto) 66.3 Lymph % (Auto) 22.5 [place] % (Auto) 5.9 Eos % (Auto) 4.4 Baso % (Auto) 0.5 Absolute Neuts (auto) 4.8 Absolute Lymphs (auto) 1.64 Nucleated RBC % 0 ESR 8 PT 25.8 H INR 2.5 Sodium 142 Potassium 3.7 Chloride 107 Carbon Dioxide 30.0 Anion Gap 5 BUN 15 Creatinine 0.80 Estim Creat Clear Calc 49.00 Est GFR (MDRD) Af Amer 88 Est GFR (MDRD) Non-Af 73 BUN/Creatinine Ratio 18.8 Glucose 135 H Uric Acid 8.4 H Calcium 8.6 Total Bilirubin 0.40 AST 15 ALT 20 Alkaline Phosphatase 62 C-React Prot Ext Range 27.20 H Total Protein 6.7 Albumin 3.1 L Globulin 3.6 Albumin/Globulin Ratio 0.9 Radiography Diagnostic Testing: Clinical Impression(s) from Imaging Studies Ankle X-Ray 07/25/21 09:41 Discharge Plan Triage Chief Complaint: Lower Extremity Injury ED Provider: Sim Hooper Dx/Rx/DC Orders Clinical Impression: Gout, Acute ankle pain Instructions: ED Gout Prescriptions: New oxycodone-acetaminophen [Percocet] 5-325 mg tablet 1 tab PO Q8H PRN (Reason: pain) 3 Days Qty: 10 RF: 0 No Action insulin lispro 100 UNIT/ML solution 12 - 14 unit SQ ACHS RF: 0 bimatoprost 1 DROP bottle 1 drp EACH EYE QHS RF: 0 insulin glargine 100 unit/mL (3 mL) insulin pen 34 unit subcut QHS RF: 0 furosemide 20 MG tablet 20 mg PO BIDLX RF: 0 levothyroxine 75 MCG tablet 75 mcg PO DAILY@0600 RF: 0 multivitamin Tablet 1 tab PO DAILY RF: 0 levetiracetam 750 mg Tablet 750 mg PO BID RF: 0 lisinopril 5 mg Tablet 5 mg PO DAILY RF: 0 prednisone 20 mg tablet 20 mg PO BID Qty: 10 RF: 0 warfarin 3 mg tablet 3 mg PO SUMOWEFR RF: 0 flaxseed oil 1,000 mg Capsule 1,000 mg PO BID RF: 0 pravastatin 10 mg tablet 10 mg PO DAILY RF: 0 docusate sodium 100 mg Capsule 100 mg PO BID RF: 0 warfarin 1 mg tablet 2 mg PO TUTHSA RF: 0 Vitamin D2 25,000 unit Capsule 50,000 unit PO QWEEK RF: 0 Primary Care Provider: Ke Zabala Referrals: Ke Zabala MD [Primary Care Provider] - 2 Days Disposition Disposition: Home, Self Care
[2021-07-25 10:08] LABS: Erythrocyte Sedimentation Rate 8 mm/hr (0-30)
[2021-07-25 10:09] LABS: Absolute Lymphocyte Count 1.64 X10^3/uL (0.83-4.51); Absolute Neutrophil Count 4.8 X10^3/uL (2.0-7.7); Basophil# 0.04 X10^3/uL; Basophil% 0.5 % (0-1); Eosinophil# 0.32 X10^3/uL; Eosinophils% 4.4 % (0-5); Hematocrit 39.6 % (37-47); Hemoglobin 12.4 g/dL (12.0-15.0); Lymphocyte # 1.64 X10^3/ul (0.83-4.51); Lymphocyte % 22.5 % (19-41); Mean Corp Hgb Conc 31.3 g/dL (32-36); Mean Corpuscular Volume 92.7 fL (81-99); Mean Platelet Vol. 11.3 fl (6.2-12.0); Monocyte# 0.43 X10^3/uL; Monocyte% 5.9 % (0-10); NRBC Flagged by Analyzer 0 % (0-5); Neutrophil # 4.82 X10^3/uL (2.7-7.7); Neutrophil % 66.3 % (47-70); Platelet Count 132 K/mm3 (150-450); RBC Distribution Width CV 14.7 % (11.6-14.6); RBC Distribution Width SD 50.5 fl (35.1-43.9); Red Blood Count 4.27 M/mm3 (4.2-5.4); White Blood Count 7.3 K/mm3 (4.4-11.0)
[2021-07-25 10:11] LABS: International Normalized Ratio 2.5; Prothrombin Time (Protime)PT. 25.8 SECONDS (11.7-14.9)
[2021-07-25 10:20] LABS: ALB/GLOB Ratio 0.9 RATIO (0.9-2.4); AST(SGOT) 15 U/L (15-37); Alanine Aminotransfer ALT/SGPT 20 U/L (13-56); Albumin, Serum 3.1 g/dL (3.2-5.0); Alkaline Phosphatase 62 U/L (45-117); Anion Gap 5 (5-15); BUN 15 mg/dL (7-18); BUN/Creat Ratio 18.8 RATIO (10-20); Calcium,Total 8.6 mg/dL (8.5-10.1); Chloride 107 mmol/L (98-107); EST Glomerular Filtration Rate 73 mL/min (>60); Est Glom Filt Rate - Afr Amer 88 mL/min (>60); Globulin 3.6 g/dL (2.2-4.2); Glucose 135 mg/dL (74-106); Potassium 3.7 mmol/L (3.5-5.1); Protein, Total 6.7 g/dL (6.4-8.2); Sodium Level 142 mmol/L (136-145); Uric Acid 8.4 mg/dL (2.6-6.0)
== END 2021-07-25 11:29 | disposition home or self-care (01) ==
PROVIDERS: Emergency Provider Emergency Medicine; PCP Family Medicine
DX: M25.572 Pain in left ankle and joints of left foot (principal); M10.9 Gout, unspecified; X50.1XXA Overexertion from prolonged static or awkward postures, initial encounter; Y93.9 Activity, unspecified; Y92.9 Unspecified place or not applicable; E66.9 Obesity, unspecified; Z68.32 Body mass index [BMI] 32.0-32.9, adult; E78.5 Hyperlipidemia, unspecified; H40.9 Unspecified glaucoma; K86.3 Pseudocyst of pancreas; E03.9 Hypothyroidism, unspecified; I13.0 Hypertensive heart and chronic kidney disease with heart failure and stage 1 through stage 4 chronic kidney disease, or unspecified chronic kidney disease; E11.22 Type 2 diabetes mellitus with diabetic chronic kidney disease; I50.32 Chronic diastolic (congestive) heart failure; N18.30 Chronic kidney disease, stage 3 unspecified; I25.10 Atherosclerotic heart disease of native coronary artery without angina pectoris; I25.2 Old myocardial infarction; J44.9 Chronic obstructive pulmonary disease, unspecified; I87.2 Venous insufficiency (chronic) (peripheral); M72.2 Plantar fascial fibromatosis; Z86.2 Personal history of diseases of the blood and blood-forming organs and certain disorders involving the immune mechanism; Z87.01 Personal history of pneumonia (recurrent); Z86.718 Personal history of other venous thrombosis and embolism; Z95.1 Presence of aortocoronary bypass graft; Z79.4 Long term (current) use of insulin; Z79.01 Long term (current) use of anticoagulants; Z79.899 Other long term (current) drug therapy; Z87.891 Personal history of nicotine dependence
CPT/HCPCS: 73610; 80053; 84550; 85025; 85610; 85652; 86140; 99285; A4216

== ENCOUNTER → 2022-04-27 | Outpatient (CLI) | payer MEDICARE, OTHER, SELFPAY ==
--- NOTE | 2022-04-27 06:47 | ECHOD_ITS ---
Reason For Study: PE, RV DILATATION Procedure This was a 2D Doppler, Color Flow transthoracic echocardiogram. The study was technically difficult. Exam performed in department. Left Ventricle Normal LV size. Sigmoid septum. Segmental dysfunction with preserved ejection fraction (see wall motion). The estimated ejection fraction is 65 %. Stage 3 diastolic dysfunction. Mid-inferoseptal : Hypokinetic. Mid-anteroseptal : Hypokinetic. Right Ventricle Normal RV size. The right ventricle is normal in size, function, and thickness. Atria The left atrium is mildly enlarged. Normal right atrium. No doppler evidence for ASD. Mitral Valve There is mild mitral annular calcification. Extension of the mitral annular calcification onto the base of the posterior mitral valve leaflet. Mild (1+) mitral valve insufficiency. Tricuspid Valve Normal tricuspid valve. Mild tricuspid valve insufficiency. Right ventricular systolic pressure estimated to be 38 mmHg. Aortic Valve Trisinus/trileaflet aortic valve. Moderate focal aortic valve calcification. Mild to moderate aortic stenosis. Pulmonic Valve The pulmonic valve is not well visualized. Great Vessels Normal sized aortic root. Calcified aortic root. Pericardium/Pleural No pericardial effusion. MMode/2D Measurements & Calculations LVIDd: 4.3 cm IVSd: 1.3 cm LVOT diam: 2.1 cm LVIDs: 2.7 cm LVPWd: 1.4 cm LVOT area: 3.6 cm2 RVDd: 3.1 cm FS: 36.1 % Ao root diam: 3.1 cm LAV(MOD-bp): 95.6 ml LA A4 area: 27.7 cm2 LAV(MOD-bp) Indexed: 49.1 ml/m2 LAV(MOD-sp2): 90.1 ml LAV(MOD-sp4): 97.0 ml LA dimension(2D): 5.4 cm RA A4 area: 20.1 cm2 Time Measurements MV dec time: 0.21 sec Doppler Measurements & Calculations MV E max craig: 89.4 cm/sec Lat Peak E' Craig: 5.1 cm/sec Med Peak E' Craig: 2.8 cm/sec MV A max craig: 40.7 cm/sec E/E' lat: 17.4 E/E' med: 31.4 MV E/A: 2.2 MV dec slope: 434.0 cm/sec2 Ao V2 max: 235.2 cm/sec LV V1 max: 72.4 cm/sec Ao max P.1 mmHg LV V1 max P.1 mmHg Ao V2 mean: 170.0 cm/sec LV V1 mean P.1 mmHg Ao mean P.0 mmHg LV V1 mean: 48.6 cm/sec Ao V2 VTI: 61.7 cm LV V1 VTI: 19.7 cm TANIA(I,D): 1.2 cm2 TANIA(V,D): 1.1 cm2 SV(LVOT): 71.3 ml PA V2 max: 59.1 cm/sec TR max craig: 296.0 cm/sec TR max P.0 mmHg ECHO/Echo Complete Interpretation Summary The study was technically difficult. Segmental dysfunction with preserved ejection fraction (see wall motion). The estimated ejection fraction is 65 %. The left atrium is mildly enlarged. There is mild mitral annular calcification. Extension of the mitral annular calcification onto the base of the posterior mi tral valve leaflet. Mild (1+) mitral valve insufficiency. Mild tricuspid valve insufficiency. Mild to moderate aortic stenosis. Calcified aortic root. Right ventricular systolic pressure estimated to be 38 mmHg. Stage 3 diastolic dysfunction. Ordering Physician: Regi Frost Referring Physician: Ke Zabala Performed By: Yanci Richardson, VAMSHI, RVT
== END | disposition home or self-care (01) ==
LOC: CVS 06:41
PROVIDERS: PCP Family Medicine; Referring Provider Nurse Practitioner Gerontology; Visit Provider Nurse Practitioner Gerontology
DX: I51.7 Cardiomegaly (principal); Z86.711 Personal history of pulmonary embolism
CPT/HCPCS: 93306

== ENCOUNTER → 2022-12-30 | Outpatient (CLI) | payer MEDICARE, OTHER, SELFPAY ==
[2022-12-30 14:52] LABS: Absolute Lymphocyte Count 2.21 X10^3/uL (0.83-4.51); Absolute Neutrophil Count 3.1 X10^3/uL (2.0-7.7); Basophil# 0.04 X10^3/uL; Basophil% 0.6 % (0-1); Eosinophil# 0.46 X10^3/uL; Eosinophils% 7.3 % (0-5); Hematocrit 43.8 % (37-47); Lymphocyte # 2.21 X10^3/ul (0.83-4.51); Lymphocyte % 35.3 % (19-41); Mean Corpuscular Hgb 29.1 pg (27.0-32.0); Mean Corpuscular Volume 91.1 fL (81-99); Mean Platelet Vol. 11.9 fl (6.2-12.0); Monocyte% 6.4 % (0-10); NRBC Flagged by Analyzer 0 % (0-5); Neutrophil # 3.13 X10^3/uL (2.7-7.7); Neutrophil % 50.1 % (47-70); Platelet Count 145 K/mm3 (150-450); RBC Distribution Width CV 14.9 % (11.6-14.6); RBC Distribution Width SD 50.1 fl (35.1-43.9); Red Blood Count 4.81 M/mm3 (4.2-5.4); White Blood Count 6.3 K/mm3 (4.4-11.0)
[2022-12-30 16:01] LABS: BNP,B-Type NATRIURETIC PEPTIDE 303.7 pg/mL (0-100)
[2022-12-30 16:13] LABS: Anion Gap 7 (5-15); BUN 17 mg/dL (7-18); BUN/Creat Ratio 19.4 RATIO (10-20); Calcium,Total 9.2 mg/dL (8.5-10.1); Chloride 107 mmol/L (98-107); Creatinine, Serum 0.88 mg/dL (0.55-1.02); EST Glomerular Filtration Rate 65 mL/min (>60); Est Glom Filt Rate - Afr Amer 79 mL/min (>60); Glucose 109 mg/dL (74-106); Potassium 3.9 mmol/L (3.5-5.1); Sodium Level 142 mmol/L (136-145); T4 Free Direct 1.23 ng/dL (0.76-1.46)
== END | disposition home or self-care (01) ==
LOC: LAB 14:00
PROVIDERS: PCP Family Medicine; Referring Provider Nurse Practitioner Gerontology; Visit Provider Nurse Practitioner Gerontology
DX: I50.32 Chronic diastolic (congestive) heart failure (principal); R06.09 Other forms of dyspnea; R53.83 Other fatigue
CPT/HCPCS: 36415; 80048; 83880; 84439; 84443; 84481; 85025

== ENCOUNTER → 2023-01-10 | Outpatient (CLI) | payer MEDICARE, OTHER, SELFPAY ==
[2023-01-10 09:59] LABS: Anion Gap 4 (5-15); BUN 15 mg/dL (7-18); BUN/Creat Ratio 16.1 RATIO (10-20); Calcium,Total 9.5 mg/dL (8.5-10.1); Chloride 106 mmol/L (98-107); Creatinine, Serum 0.93 mg/dL (0.55-1.02); EST Glomerular Filtration Rate 61 mL/min (>60); Est Glom Filt Rate - Afr Amer 74 mL/min (>60); Glucose 123 mg/dL (74-106); Potassium 4.5 mmol/L (3.5-5.1); Sodium Level 140 mmol/L (136-145)
== END | disposition home or self-care (01) ==
PROVIDERS: PCP Family Medicine; Referring Provider Nurse Practitioner Gerontology; Visit Provider Nurse Practitioner Gerontology
DX: R06.09 Other forms of dyspnea (principal)
CPT/HCPCS: 36415; 80048

== ENCOUNTER 2023-07-04 12:40 | Emergency (ER) | payer MEDICARE, OTHER, SELFPAY ==
[2023-07-04 12:40] VITALS: BP 136/68; PULSE 70; RESP 16; TEMP 35.9; O2SAT 98
--- NOTE | 2023-07-04 13:44 | VDLE_ITS ---
Reason For Study: Pain RLE RIGHT GSV is normal. CFV is compressible, spontaneous, phasic, competent and demonstrates normal augmentation. FV is compressible, spontaneous, phasic, competent and demonstrates normal augmentation. POP V is compressible, spontaneous, phasic, competent and demonstrates normal augmentation. T/P Trunk is compressible. PTV is compressible. RT PerV is compressible. Rt calf varicosity is dilated and non compressible consistent with acute SVT. Procedure This is a venous duplex using B-mode, color flow and spectral Doppler. Exam performed portable in ED. A preliminary report was called and/or faxed to Dr. Frias. VL/Venous Duplex US, Unilateral Interpretation Summary Acute superficial vein thrombus noted in right calf varicosity. Deep veins of the right lower extremity are patent and compressible segmentally . There is no evidence of right lower extremity deep vein thrombosis. The right great [place] vein appears patent and compressible segmentally. Ordering Physician: Chemo Frias Referring Physician: Ke Zabala Performed By: Reyna Zeng, VAMSHI, RVT
--- NOTE | 2023-07-04 13:46 | ED.VIS.DYS ---
HPI History of Present Illness Chief Complaint: Shortness of Breath Informant: patient Onset/Context/Timing Onset: Today Context: gradual and exertion Timing: Intermittent Quality: Positive for Dyspnea on exertion Worsened by: Exertion Relieved by: Rest Associated Symptoms Negative for cough, rhinorrhea, post nasal drip, ear pain, fever, sore throat, chills or sweats Chest Pain: Positive for None Narrative Narrative: Patient presents with right lower extremity pain that has been getting worse over the last 4 days. Patient describes it as aching and throbbing. Patient states he has a history of DVT and PE. Patient states she is concerned that she has developed a new DVT in her leg. Patient states that she checked her INR last week and it was elevated at 4.4. Patient states she was instructed to hold her Coumadin last Tuesday (07/01) take 1 mg on Tuesday (07/02), and hold it again yesterday (07/03). Patient states she did have some shortness of breath earlier today while she was doing some housework. Patient states that this resolved. Patient states she was able to walk up the ramp to the emergency department without any shortness of breath. PE Risk Factors: Positive for Prior DVT or PE; Negative for Cancer, OCP + Smoking + > 35, Recent immobilization or Recent surgery [facility] Medical History Atherosclerotic heart disease of [place] coronary artery without angina pectoris Brain bleed CHF (congestive heart failure) Chronic diastolic heart failure CKD (chronic kidney disease) stage 3, GFR 30-59 ml/min Community acquired pneumonia COPD (chronic obstructive pulmonary disease) Coronary artery disease Diffuse cystic mastopathy Essential hypertension First degree AV block Glaucoma Hematoma History of non-ST elevation myocardial infarction (NSTEMI) History of recurrent deep vein thrombosis (DVT) HLD (hyperlipidemia) [place] (hard of hearing) HTN (hypertension) Hypothyroidism Left ventricular hypertrophy Obesity Old myocardial infarction Pancreatic pseudocyst Pes planus [place] Sciatica Statin intolerance Thrombocytopenia Type II diabetes mellitus Venous insufficiency Home Medications insulin lispro 100 unit/mL subcutaneous solution 12 - 14 unit SQ ACHS diabetic 08/19/13 [History Last Taken 03/29/16] levothyroxine 75 mcg tablet 75 mcg PO DAILY@0600 THYROID 12/21/17 [History Last Taken Unknown] insulin glargine 100 unit/mL (3 mL) subcutaneous pen 34 unit subcut QHS diabetic 09/06/19 [History Last Taken Unknown] warfarin 1 mg tablet 2 mg PO TUTHSA 07/25/21 [History Last Taken Unknown] warfarin 3 mg tablet 3 mg PO SUMOWEFR 07/25/21 [History Last Taken Unknown] amlodipine 5 mg tablet 5 mg PO BID #180 tabs 01/05/23 [Rx Last Taken Unknown] ezetimibe 10 mg tablet (Zetia) 10 mg PO DAILY #90 tabs 01/07/23 [Rx Last Taken Unknown] metoprolol succinate 25 mg tablet,extended release 24 hr 25 mg PO DAILY #90 tabs 03/07/23 [Rx Last Taken Unknown] furosemide 40 mg tablet (Lasix) 40 mg PO DAILY 05/05/23 [History Last Taken Unknown] Allergy/AdvReac Type Severity Reaction Status Date / Time celecoxib [From Celebrex] Allergy Severe Itching Verified 05/05/23 13:19 Penicillins Allergy Swelling Verified 05/05/23 13:19 Sulfa (Sulfonamide Allergy Rash Verified 05/05/23 13:19 Antibiotics) atorvastatin AdvReac Severe myalgias Verified 05/05/23 13:19 meperidine HCl [From Demerol] AdvReac Other Verified 05/05/23 13:19 Family History Mother Diabetes Surgical History History of coronary artery bypass surgery (~04/06/16) Social History Smoking Status: Former smoker alcohol intake: never substance use type: does not use caffeine: No ROS ROS ED Constitutional Constitutional ED: Denies chills or fever(s) Eyes Eyes: Denies blurry vision or change in vision ENT ENT ED: Denies rhinorrhea or sore throat Cardiovascular Cardiovascular: Denies chest pain or palpitations Respiratory/Chest Respiratory/Chest: Reports dyspnea; Denies cough Gastrointestinal Gastrointestinal: Denies nausea or vomiting Genitourinary Genitourinary ED: Denies dysuria or hematuria Musculoskeletal Musculoskeletal: Denies back pain or neck pain Integumentary Denies abscess or rash Neurologic Neurologic: Denies headache(s) or weakness Allergic/Immunologic Allergic/Immunologic ED: Denies mouth swelling or urticaria EXAM Physical Exam Const Vital Signs: 07/04/23 12:40 07/04/23 14:38 Temperature 96.7 F L Temperature Source Temporal Pulse Rate 70 Respiratory Rate 16 Respiratory Effort Normal Non-Labored Respiratory Depth Normal Respiratory Pattern Normal Blood Pressure 136/68 H Blood Pressure Mean 90 Pulse Ox 98 Oxygen Delivery Method Room Air Room Air Positive well nourished and well developed General Appearance ED: well developed and NAD HEENT Reports moist mucous membranes Neck supple and no JVD Resp normal respiratory effort and clear to auscultation bilaterally Cardio regular rate and regular rhythm Cardio Narrative: There is a grade 3/6 systolic murmur at the right upper sternal border. GI non-tender and non-distended Palpation: soft Extremity Extremity Narrative: There is tenderness over the right calf. There are multiple varicose veins noted. There is no erythema or warmth. There is no pain with compression of the calf. There is no pain with dorsiflexion of the right ankle. Pedal pulses are equal bilaterally. Sensation was intact to light touch bilaterally in the lower extremities. Length is 5/5 bilaterally in the lower extremities. Neuro oriented x3, CN's II-XII intact bilaterally and no sensory deficits noted [place] Coma Scale: document GCS findings Spontaneous Obeys Commands Oriented 15 Sensorium / Orientation: alert Speech: speech normal Motor Exam: strength 5/5 throughout Psych mental status grossly normal MDM MDM MDM Narrative Medical decision making narrative: Differential diagnosis includes DVT, coagulopathy, superficial phlebitis, varicose vein, and dyspnea. CBC will be obtained to assess for leukocytosis and anemia. Basic metabolic profile will be obtained to assess for electrolyte abnormality and renal function. PT with INR will be obtained to assess for coagulopathy. Venous duplex of the right lower extremity will be obtained to assess for DVT. Lab Data Attestation: I reviewed the patient's lab results. Lab results narrative: CBC was reviewed and was within normal limits. PT was INR was reviewed. PT was 25.0 and INR was 2.2. Basic metabolic profile was reviewed and was within normal limits except for mildly elevated glucose of 180. Labs: Laboratory Results - last 24 hr 07/04/23 14:07 WBC 6.4 RBC 4.77 Hgb 13.8 Hct 44.1 MCV 92.5 MCH 28.9 MCHC 31.3 L RDW Std Deviation 50.1 H RDW Coeff of Se 14.6 Plt Count 118 L MPV 11.8 Immature Gran % (Auto) 0.500 Neut % (Auto) 59.7 Lymph % (Auto) 28.6 [place] % (Auto) 5.7 Eos % (Auto) 4.9 Baso % (Auto) 0.6 Absolute Neuts (auto) 3.8 Absolute Lymphs (auto) 1.82 Nucleated RBC % 0 PT 25.0 H INR 2.2 Sodium 139 Potassium 4.3 Chloride 103 Carbon Dioxide 31.0 Anion Gap 5 BUN 18 Creatinine 0.90 Est GFR (MDRD) Af Amer 77 Est GFR (MDRD) Non-Af 64 BUN/Creatinine Ratio 20.1 H Glucose 180 H Calcium 9.1 Radiography Diagnostic Testing: Venous duplex of the right lower extremity was obtained. There is no DVT. There is superficial phlebitis in a right calf varicose vein. Treatment and Re-Evaluation :: Patient was advised of her findings. Patient was instructed to use warm compresses to her right leg. Patient was instructed to continue her medications as previously prescribed. Patient was instructed to follow-up with her primary care physician in 5 to 7 days. Patient understood and was agreeable with the plan. All questions were answered. Discharge Plan Triage Chief Complaint: Shortness of Breath ED Provider: Chemo Frias Dx/Rx/DC Orders Clinical Impression: Type II diabetes mellitus, Superficial thrombophlebitis Instructions: ED Thrombophlebitis, Superficial Prescriptions: No Action furosemide [Lasix] 40 mg tablet 40 mg PO DAILY insulin lispro 100 UNIT/ML solution 12 - 14 unit SQ ACHS Patient Comments: diabetes, inject 5 times daily insulin glargine 100 unit/mL (3 mL) insulin pen 34 unit subcut QHS Patient Comments: blood sugar levothyroxine 75 MCG tablet 75 mcg PO DAILY@0600 warfarin 3 mg tablet 3 mg PO SUMOWEFR warfarin 1 mg tablet 2 mg PO TUTHSA Patient Comments: TAKE 2 TABLETS BY MOUTH EVERY DAY amlodipine 5 mg tablet 5 mg PO BID Qty: 180 3RF ezetimibe [Zetia] 10 mg tablet 10 mg PO DAILY Qty: 90 3RF metoprolol succinate 25 mg tablet extended release 24 hr 25 mg PO DAILY Qty: 90 3RF Primary Care Provider: Ke Zabala Referrals: Ke Zabala MD [Primary Care Provider] - 5-7 Days Disposition Disposition: Home, Self Care
[2023-07-04 14:00] VITALS: RESP 18
[2023-07-04 14:16] LABS: Absolute Lymphocyte Count 1.82 X10^3/uL (0.83-4.51); Absolute Neutrophil Count 3.8 X10^3/uL (2.0-7.7); Basophil# 0.04 X10^3/uL; Basophil% 0.6 % (0-1); Eosinophil# 0.31 X10^3/uL; Eosinophils% 4.9 % (0-5); Hematocrit 44.1 % (37-47); Hemoglobin 13.8 g/dL (12.0-15.0); Lymphocyte # 1.82 X10^3/ul (0.83-4.51); Lymphocyte % 28.6 % (19-41); Mean Corp Hgb Conc 31.3 g/dL (32-36); Mean Corpuscular Hgb 28.9 pg (27.0-32.0); Mean Corpuscular Volume 92.5 fL (81-99); Mean Platelet Vol. 11.8 fl (6.2-12.0); Monocyte# 0.36 X10^3/uL; Monocyte% 5.7 % (0-10); NRBC Flagged by Analyzer 0 % (0-5); Neutrophil % 59.7 % (47-70); Platelet Count 118 K/mm3 (150-450); RBC Distribution Width CV 14.6 % (11.6-14.6); RBC Distribution Width SD 50.1 fl (35.1-43.9); Red Blood Count 4.77 M/mm3 (4.2-5.4); White Blood Count 6.4 K/mm3 (4.4-11.0)
[2023-07-04 14:27] LABS: Anion Gap 5 (5-15); BUN 18 mg/dL (7-18); BUN/Creat Ratio 20.1 RATIO (10-20); Calcium,Total 9.1 mg/dL (8.5-10.1); Chloride 103 mmol/L (98-107); EST Glomerular Filtration Rate 64 mL/min (>60); Est Glom Filt Rate - Afr Amer 77 mL/min (>60); Glucose 180 mg/dL (74-106); Potassium 4.3 mmol/L (3.5-5.1); Sodium Level 139 mmol/L (136-145)
[2023-07-04 14:47] LABS: International Normalized Ratio 2.2
[2023-07-04 15:00] VITALS: RESP 18
== END 2023-07-04 15:43 | disposition home or self-care (01) ==
PROVIDERS: Emergency Provider Emergency Medicine; PCP Family Medicine; Visit Provider Emergency Medicine
DX: E11.22 Type 2 diabetes mellitus with diabetic chronic kidney disease (principal); J44.9 Chronic obstructive pulmonary disease, unspecified; I50.32 Chronic diastolic (congestive) heart failure; I13.0 Hypertensive heart and chronic kidney disease with heart failure and stage 1 through stage 4 chronic kidney disease, or unspecified chronic kidney disease; Z79.4 Long term (current) use of insulin; N18.30 Chronic kidney disease, stage 3 unspecified; Z87.891 Personal history of nicotine dependence; I25.10 Atherosclerotic heart disease of native coronary artery without angina pectoris; E78.5 Hyperlipidemia, unspecified; I25.2 Old myocardial infarction; E03.9 Hypothyroidism, unspecified; Z86.718 Personal history of other venous thrombosis and embolism; Z79.01 Long term (current) use of anticoagulants; I80.01 Phlebitis and thrombophlebitis of superficial vessels of right lower extremity
CPT/HCPCS: 80048; 85025; 85610; 93971; 99282; A4216

== ENCOUNTER → 2023-11-11 | Outpatient (CLI) | payer MEDICARE, OTHER, SELFPAY ==
[2023-11-11 12:26] LABS: Absolute Lymphocyte Count 2.15 X10^3/uL (0.83-4.51); Absolute Neutrophil Count 3.3 X10^3/uL (2.0-7.7); Basophil# 0.04 X10^3/uL; Basophil% 0.6 % (0-1); Eosinophil# 0.31 X10^3/uL; Hemoglobin 13.3 g/dL (12.0-15.0); Lymphocyte # 2.15 X10^3/ul (0.83-4.51); Lymphocyte % 34.5 % (19-41); Mean Corp Hgb Conc 31.7 g/dL (32-36); Mean Corpuscular Hgb 29.4 pg (27.0-32.0); Mean Corpuscular Volume 92.9 fL (81-99); Monocyte# 0.38 X10^3/uL; Monocyte% 6.1 % (0-10); NRBC Flagged by Analyzer 0 % (0-5); Neutrophil # 3.33 X10^3/uL (2.7-7.7); Neutrophil % 53.3 % (47-70); Platelet Count 147 K/mm3 (150-450); RBC Distribution Width CV 15.1 % (11.6-14.6); RBC Distribution Width SD 51.8 fl (35.1-43.9); Red Blood Count 4.52 M/mm3 (4.2-5.4); White Blood Count 6.2 K/mm3 (4.4-11.0)
[2023-11-11 12:32] LABS: International Normalized Ratio 1.8; Prothrombin Time (Protime)PT. 21.2 SECONDS (11.7-14.9)
[2023-11-11 12:33] LABS: Partial Thromboplast Time 36.5 Seconds (24.1-36.2)
[2023-11-11 12:58] LABS: BNP,B-Type NATRIURETIC PEPTIDE 308.1 pg/mL (0-100)
[2023-11-11 13:16] LABS: Anion Gap 4 (5-15); BUN 12 mg/dL (7-18); BUN/Creat Ratio 12.3 RATIO (10-20); Calcium,Total 9.6 mg/dL (8.5-10.1); Chloride 107 mmol/L (98-107); Creatinine, Serum 0.97 mg/dL (0.55-1.02); EST Glomerular Filtration Rate 58 mL/min (>60); Est Glom Filt Rate - Afr Amer 70 mL/min (>60); Glucose 95 mg/dL (74-106); Potassium 3.8 mmol/L (3.5-5.1); Sodium Level 140 mmol/L (136-145)
== END | disposition home or self-care (01) ==
PROVIDERS: PCP Family Medicine; Referring Provider Nurse Practitioner Gerontology; Visit Provider Nurse Practitioner Gerontology
DX: I50.32 Chronic diastolic (congestive) heart failure (principal); I35.0 Nonrheumatic aortic (valve) stenosis
CPT/HCPCS: 36415; 80048; 83880; 85025; 85610; 85730

== ENCOUNTER → 2023-11-29 | Outpatient (CLI) | payer MEDICARE, OTHER, SELFPAY | END | disposition home or self-care (01) | LOC: PSN 09:39 | PROVIDERS: PCP Family Medicine; Referring Provider Nurse Practitioner Gerontology; Visit Provider Nurse Practitioner Gerontology | DX: R00.2 Palpitations (principal) | CPT/HCPCS: 93225; 93226 ==

== ENCOUNTER → 2024-02-21 | Outpatient (CLI) | payer MEDICARE, OTHER, SELFPAY ==
--- NOTE | 2024-02-21 12:20 | RAD_ITS ---
STUDY: X-RAY - PELVIS REASON FOR EXAM: Female, 88 years old. RHEUMATOID FACTOR TECHNIQUE: One view of the pelvis was obtained. COMPARISON: None. FINDINGS: There is a non-specific bowel gas pattern. Normal visualized soft tissue structures. Normal bilateral iliac wings, sacroiliac joints and visualized sacrum. Normal visualized bilateral superior and inferior pubic rami. Normal pubic symphysis. Normal ischial tuberosities. Normal visualized right femoral head. Normal right acetabulum. Normal right hip joint. Normal visualized left femoral head. Normal left acetabulum. Normal left hip joint. RAD/Pelvis 1 or 2 Views IMPRESSION: Normal x-ray examination of the pelvis. Electronically Signed: Say Morris MD at 14:39 EDT ,
[2024-02-21 13:08] LABS: Absolute Lymphocyte Count 2.25 X10^3/uL (0.83-4.51); Basophil# 0.06 X10^3/uL; Basophil% 0.8 % (0-1); Eosinophil# 0.45 X10^3/uL; Eosinophils% 6.2 % (0-5); Hematocrit 42.2 % (37-47); Hemoglobin 13.5 g/dL (12.0-15.0); Lymphocyte # 2.25 X10^3/ul (0.83-4.51); Lymphocyte % 31.2 % (19-41); Mean Corpuscular Hgb 29.5 pg (27.0-32.0); Mean Corpuscular Volume 92.3 fL (81-99); Mean Platelet Vol. 12.3 fl (6.2-12.0); Monocyte# 0.46 X10^3/uL; Monocyte% 6.4 % (0-10); NRBC Flagged by Analyzer 0 % (0-5); Neutrophil # 3.96 X10^3/uL (2.7-7.7); Neutrophil % 54.8 % (47-70); Platelet Count 129 K/mm3 (150-450); RBC Distribution Width CV 15.3 % (11.6-14.6); RBC Distribution Width SD 51.9 fl (35.1-43.9); Red Blood Count 4.57 M/mm3 (4.2-5.4); White Blood Count 7.2 K/mm3 (4.4-11.0)
[2024-02-21 13:11] LABS: Erythrocyte Sedimentation Rate 8 mm/hr (0-30)
[2024-02-21 13:51] LABS: ALB/GLOB Ratio 0.9 RATIO (0.9-2.4); AST(SGOT) 19 U/L (15-37); Alanine Aminotransfer ALT/SGPT 17 U/L (13-56); Albumin, Serum 3.4 g/dL (3.2-5.0); Alkaline Phosphatase 69 U/L (45-117); Anion Gap 6 (5-15); BUN 21 mg/dL (7-18); BUN/Creat Ratio 16.2 RATIO (10-20); CRP 4.02 mg/L (0.0-3.0); Calcium,Total 8.9 mg/dL (8.5-10.1); Chloride 101 mmol/L (98-107); EST Glomerular Filtration Rate 41 mL/min (>60); Est Glom Filt Rate - Afr Amer 50 mL/min (>60); Globulin 3.7 g/dL (2.2-4.2); Glucose 247 mg/dL (74-106); Potassium 4.5 mmol/L (3.5-5.1); Protein, Total 7.1 g/dL (6.4-8.2); Rheumatoid Factor < 10.0 IU/mL (<15); Sodium Level 135 mmol/L (136-145)
[2024-02-21 14:27] LABS: Hepatitis B Surface Antibody Non-Reactive; Hepatitis B Surface Antigen Non-Reactive (Nonreactive); Hepatitis C Antibody Non-Reactive (Nonreactive)
[2024-02-23 14:10] LABS: CCP IgG Antibodies 73 units (0-19)
== END | disposition home or self-care (01) ==
PROVIDERS: PCP Family Medicine; Referring Provider Internal Medicine Rheumatology; Visit Provider Internal Medicine Rheumatology
DX: R76.8 Other specified abnormal immunological findings in serum (principal); M16.0 Bilateral primary osteoarthritis of hip; Z87.19 Personal history of other diseases of the digestive system
CPT/HCPCS: 36415; 72170; 80053; 85025; 85652; 86140; 86200; 86431; 86706; 86803; 87340

== ENCOUNTER → 2024-04-17 | Outpatient (CLI) | payer MEDICARE, OTHER, SELFPAY ==
--- NOTE | 2024-04-17 14:20 | RAD_ITS ---
STUDY: X-RAY CHEST REASON FOR EXAM: Female, 88 years old. Atrial flutter. Cardioversion. TECHNIQUE: Frontal and lateral views of the chest. COMPARISON: March 29, 2016 FINDINGS: Mild hyperinflation with linear scarring at both bases, left slightly greater than right, unchanged. Mild diffuse interstitial pattern unaltered. There is no demonstrated pleural abnormality. Stable cardiomegaly with sternotomy wires, superior one fractured and aortic tortuosity with calcification. Prominent central pulmonary arteries. Thoracic osteopenia with diffuse mild spondylosis. Normal visualized ribs, clavicles, and shoulders. No abnormality of the visualized soft tissue structures of the upper abdomen. RAD/Chest PA and Lateral IMPRESSION: Stable chest with no acute or active cardiopulmonary disease. Electronically Signed: Duglas Watson MD at 15:25 EDT ,
[2024-04-17 15:42] LABS: International Normalized Ratio 1.7; Prothrombin Time (Protime)PT. 19.5 SECONDS (11.7-14.9)
[2024-04-17 15:46] LABS: Anion Gap 5 (5-15); BUN 23 mg/dL (7-18); BUN/Creat Ratio 22.5 RATIO (10-20); Calcium,Total 8.9 mg/dL (8.5-10.1); Chloride 103 mmol/L (98-107); Creatinine, Serum 1.02 mg/dL (0.55-1.02); EST Glomerular Filtration Rate 55 mL/min (>60); Est Glom Filt Rate - Afr Amer 66 mL/min (>60); Glucose 111 mg/dL (74-106); Potassium 3.7 mmol/L (3.5-5.1); Sodium Level 139 mmol/L (136-145)
== END | disposition home or self-care (01) ==
LOC: LAB 14:01
PROVIDERS: PCP Family Medicine; Referring Provider Nurse Practitioner Gerontology; Visit Provider Nurse Practitioner Gerontology
DX: I48.92 Unspecified atrial flutter (principal)
CPT/HCPCS: 36415; 71046; 80048; 85610

== ENCOUNTER 2024-05-14 10:22 | Day surgery (SDC) | payer MEDICARE, OTHER, SELFPAY ==
[2024-05-11 07:53] VITALS: BMI 29.9
--- NOTE | 2024-05-14 12:26 | PCM.OP.PRO ---
Procedure Report Date of Procedure: 05/14/24 DC cardioversion 89-year-old lady with a history of atrial fibrillation flutter who has been anticoagulated for minimum of 3 weeks with therapeutic anticoagulation levels. The patient was brought to the cardiac catheterization lab in the postabsorptive nonsedated state. Informed consent was obtained. Anterior-posterior pads were applied. The patient was seen by Dr. Coe of the critical care division. 40 mg of intravenous propofol was administered and 200 J of synchronized biphasic DC cardioversion energy were applied with prompt reversal to sinus rhythm. Patient tolerated the procedure well. Conclusion: Successful DC cardioversion from atrial fibrillation to sinus rhythm. Follow-up as per office protocol
--- NOTE | 2024-05-14 12:58 | PRO.PCM_ITS ---
Procedure Report Date of Procedure: 05/14/24 CONSCIOUS SEDATION REPORT DATE OF SERVICE: May 14, 2024 BRIEF HISTORY OF PRESENT ILLNESS: The patient is an 89-year-old female who presented to [facility] to undergo an elective cardioversion due to underlying atrial fibrillation. The patient is systemically anticoagulated on Coumadin with an INR of 2.4. Her last surface echocardiogram demonstrated an ejection fraction of approximately 51%. The patient denied any prior anesthetic complications. PHYSICAL EXAMINATION: VITAL SIGNS: Reviewed and were acceptable. GENERAL: The patient is a female, in no apparent distress, speaking in full sentences. HEENT: Normocephalic, atraumatic. Mucous membranes are moist and pink. Good mouth opening noted. Trachea is midline. Extremely hard of hearing. CHEST: S1, S2 irregularly irregular. No murmurs, rubs or gallops were noted. LUNGS: Clear to auscultation bilaterally without appreciable wheezes, rales or rhonchi. ABDOMEN: Soft, nontender, nondistended. Positive bowel sounds. EXTREMITIES: There is no clubbing, cyanosis or edema. ASA Class: II DESCRIPTION OF PROCEDURE: After confirmation of informed consent, the patient's anesthesia plan was reviewed in detail. Propofol was chosen. Risks and benefits were reviewed and the patient agreed to proceed. At 1219, the patient was given 40 of propofol. The patient achieved an appropriate level of sedation and was given a 200 joule synchronized cardioversion by Dr. Villeda at the bedside. This was successful in achieving normal sinus rhythm. The patient was monitored until 1233, at which time she reached her baseline mental status and function. The patient tolerated the procedure well. COMPLICATIONS: None ESTIMATED BLOOD LOSS: None RECOMMENDATIONS: Okay to recover in usual fashion. Procedures Pulmonary Pulmonary Procedures /Diagnostic Testin Con Sedation
== END 2024-05-14 13:20 | disposition home or self-care (01) ==
PROVIDERS: PCP Family Medicine; Referring Provider Internal Medicine Cardiovascular Disease; Visit Provider Internal Medicine Cardiovascular Disease
DX: I48.91 Unspecified atrial fibrillation (principal); I13.0 Hypertensive heart and chronic kidney disease with heart failure and stage 1 through stage 4 chronic kidney disease, or unspecified chronic kidney disease; I50.32 Chronic diastolic (congestive) heart failure; J44.9 Chronic obstructive pulmonary disease, unspecified; I48.92 Unspecified atrial flutter; E11.22 Type 2 diabetes mellitus with diabetic chronic kidney disease; Z79.4 Long term (current) use of insulin; N18.30 Chronic kidney disease, stage 3 unspecified; I25.10 Atherosclerotic heart disease of native coronary artery without angina pectoris; I35.0 Nonrheumatic aortic (valve) stenosis; E03.9 Hypothyroidism, unspecified; E78.5 Hyperlipidemia, unspecified; E66.9 Obesity, unspecified; I25.2 Old myocardial infarction; Z79.899 Other long term (current) drug therapy; Z79.01 Long term (current) use of anticoagulants; Z95.1 Presence of aortocoronary bypass graft; Z87.891 Personal history of nicotine dependence
CPT/HCPCS: 92960; 93005; J7040